=== PATIENT | female | born 1980 | race Caucasian/White ===

== ENCOUNTER 2021-04-20 11:36 | Emergency (ER) | payer OTHER, SELFPAY ==
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
--- NOTE | ~2021-04-20 | XR_ITS ---
EXAMINATION: XR ribs RT 2V w CXR 2V INDICATION: Right-sided rib pain TECHNIQUE: PA and lateral views of the chest and 3 views of the right ribs were obtained. COMPARISON: None. FINDINGS: The lungs are free of acute opacities. There is no pleural effusion or pneumothorax. The ca rdiomediastinal silhouette is normal. The visualized osseous structures are unremarkable. No displace d rib fracture is identified. Surgical clips are noted in the right neck. IMPRESSION: 1. No acute cardiopulmonary abnormality or evidence of displaced rib fracture. Reviewed, dictated and finalized at location A.
[2021-04-20 11:42] VITALS: BP 145/106; PULSE 71; RESP 20; TEMP 36.4; O2SAT 98
[2021-04-20] MEDS: ACETAMINOPHEN 500 MG TABLET 1000 MG PO (14:19)
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
[2021-04-20 15:56] VITALS: BP 160/90; PULSE 66; RESP 20; TEMP 36.4; O2SAT 100
== END 2021-04-20 15:58 | disposition home or self-care (01) ==
PROVIDERS: Emergency Provider Emergency Medicine
DX: S39.012A Strain of muscle, fascia and tendon of lower back, initial encounter (principal); S20.211A Contusion of right front wall of thorax, initial encounter; E03.9 Hypothyroidism, unspecified; M43.16 Spondylolisthesis, lumbar region; M46.1 Sacroiliitis, not elsewhere classified; V49.50XA Passenger injured in collision with unspecified motor vehicles in traffic accident, initial encounter
CPT/HCPCS: 71046; 71100; 72131; 99284; A9270

== ENCOUNTER 2021-05-13 17:35 | Emergency (ER) | payer OTHER, SELFPAY ==
--- NOTE | ~2021-05-13 | XR_ITS ---
XR hand RT min 3V DATE: 05/13/2021 17:51 INDICATION: Fall in posterior aspect of hand. Hand pain. TECHNIQUE: 3 views COMPARISON: None FINDINGS: No fracture or dislocation, periosteal reaction or bone destruction, erosive change or rafal drocalcinosis. IMPRESSION: Negative Reviewed, dictated and finalized at location A. IMPRESSION: Negative
[2021-05-13 17:40] VITALS: BP 148/99; PULSE 63; RESP 16; TEMP 36.6; O2SAT 99
--- NOTE | 2021-05-13 17:40 | ED.UPPEXIN ---
HPI - Extremity Injury (Upper) General Chief Complaint: Extremity Injury, Upper Stated Complaint: right hand injury Time Seen by Provider: 05/13/21 17:38 Source: patient and RN notes reviewed History of Present Illness HPI narrative: Patient is a 40-year-old female who presents the urgent care with complaints of right hand pain. Patient states it is mainly to her right thumb and right pinky finger. Patient states that she fell off a plastic stool approximately 2 weeks ago and she has had continual right pinky pain and pain to the right thumb with flexion. 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 Patient has not taken anything [id number] for pain. No other acute complaints. No acute distress noted. Patient read the plan of care. Some parts of this dictation were generated by voice recognition software and may contain typographical and/or grammatical inaccuracies. Related Data Home Medications Medication Instructions Recorded Confirmed escitalopram oxalate 20 mg PO DAILY 05/13/21 05/13/21 levothyroxine 200 mcg PO DAILY 05/13/21 05/13/21 Allergies Allergy/AdvReac Type Severity Reaction Status Date / Time Sulfa (Sulfonamide Allergy Mild Rash Verified 05/13/21 17:59 Antibiotics) latex Allergy Unknown Rash Verified 05/13/21 17:57 Penicillins Allergy Unknown Rash Verified 05/13/21 17:57 Review of Systems Review of Systems: CONSTITUTIONAL: Denies fever, chills, or sweats. EYES: Denies visual changes, redness, or discharge. ENT: Denies rhinorrhea, congestion, sore throat, or otalgia. CARDIOVASCULAR: Denies chest pain, palpitations, or edema. RESPIRATORY: Denies cough or dyspnea. GASTROINTESTINAL: Denies abdominal pain, nausea, vomiting, or diarrhea. GENITOURINARY: Denies dysuria or hematuria. SKIN: Denies rash or itching. MUSCULOSKELETAL: Reports of right thumb and right pinky finger injuries with pain and swelling NEUROLOGIC: Denies headache, numbness, or weakness. All other systems reviewed are negative, except as documented in HPI. [facility] Past Medical History Medical History (Updated 05/13/21 @ 18:03 by KIRSTIN Levi) History of hypothyroidism Surgical History Surgical History (Updated 04/20/21 @ 14:38 by Barbie Hdez PA-C) History of section History of cholecystectomy History of hysterectomy Social History Social History (Updated 04/20/21 @ 14:38 by Barbie Hdez PA-C) Substance use: never Comments At the time of my signature, I reviewed and agree with the nursing past medical, surgical, social, and family history. There is no relevant family history pertinent to the patient complaint. Exam Narrative: GENERAL: This is a well-nourished, well-developed patient, in no apparent distress. HEAD: normocephalic, atraumatic. EYES: PERRL. Sclera clear/white. Vision is grossly intact. EARS: External ears normal NOSE: External nose normal with no obvious nasal discharge, nares without redness, no rhinorrhea. THROAT: Mucous membranes moist CARDIOVASCULAR: Regular rate and rhythm without murmurs, gallops, or rubs. RESPIRATORY: Clear to auscultation. Breath sounds equal bilaterally. No wheezes, rales, or rhonchi. SKIN: warm, intact with no suspicious lesions or rash, good texture and turgor. NEURO: awake, alert, and oriented to person, place and time. There were no obvious focal neurologic abnormalities. EXTREMITIES: Mild ecchymosis noted to the MCP of the right thumb with exacerbated pain on flexion. Mild ecchymosis/edema noted to the radial aspect of the right pinky finger. No obvious deformity. Positive strong right radial pulse with capillary refill less than 2 seconds. Course Vital Signs Vital signs: Vital Signs Temperature 97.9 F 05/13/21 17:40 Pulse Rate 63 05/13/21 17:40 Respiratory Rate 16 05/13/21 17:40 Blood Pressure 148/99 H 05/13/21 17:40 Pulse Oximetry 99 05/13/21 17:40 Temperature 97.9 F
== END 2021-05-13 18:05 | disposition home or self-care (01) ==
PROVIDERS: Emergency Provider Nurse Practitioner Family; PCP Emergency Medicine
DX: S63.619A Unspecified sprain of unspecified finger, initial encounter (principal); X58.XXXA Exposure to other specified factors, initial encounter; E03.9 Hypothyroidism, unspecified
CPT/HCPCS: 73130; 99213; G0463

== ENCOUNTER 2023-06-09 18:05 | Emergency (ER) | payer OTHER, SELFPAY ==
--- NOTE | ~2023-06-09 | XR_ITS ---
EXAMINATION: XR foot RT min 3V DATE: 06/09/2023 18:20 INDICATION: Lateral right foot pain post injury after walking downstairs with audible pop 1 week prio r TECHNIQUE: Dorsoplantar, two oblique and lateral views of the right foot were obtained. COMPARISON: None. FINDINGS: Bone alignment is normal. No fracture. Joint spaces are normal. Small os supra naviculare. Small plan tar calcaneal spur. Soft tissues are unremarkable. IMPRESSION: 1. No acute osseous abnormality. Reviewed, dictated and finalized at location A.
[2023-06-09 18:13] VITALS: BP 144/96; PULSE 71; RESP 16; TEMP 36.6; O2SAT 98
[2023-06-09 18:17] VITALS: BP 144/96; PULSE 71; RESP 16; TEMP 36.6; O2SAT 98
--- NOTE | 2023-06-09 18:21 | ED.LOWEXIN ---
HPI - Extremity Injury (Lower) General Chief Complaint: Extremity Injury, Lower Stated Complaint: Right Foot Injury Time Seen by Provider: 06/09/23 18:22 Source: patient, RN notes reviewed and old records reviewed Mode of arrival: ambulatory Limitations: no limitations History of Present Illness HPI Narrative: 42 year old female presents to [facility] care with complaints of going down the steps one week ago and felt a pop. Patient reports pain to dorsal aspect of her right foot with pain along her lateral foot near 5th metatarsal region with concern for raised area on dorsal foot, Patient has taken Ibuprofen and Tylenol iced and elevated foot. Patient states that her foot feels like falling apart when she ambulates on it, Circulation sensation intact with no acute bruising or swelling noted. MD complaint: foot injury (right) Onset (ago): week(s) (week) Type of Injury: other (rolled foot felt pop) Severity scale (1-10): 6 Treatments prior to arrival: cold therapy, NSAIDS and other (Tylenol and elevated) Related Data Home Medications Medication Instructions Recorded Confirmed escitalopram oxalate 20 mg tablet 20 mg PO DAILY 05/13/21 06/09/23 levothyroxine 200 mcg tablet 200 mcg PO DAILY 05/13/21 06/09/23 hydroxychloroquine 200 mg tablet 200 mg PO DAILY 06/09/23 06/09/23 Allergies Allergy/AdvReac Type Severity Reaction Status Date / Time Sulfa (Sulfonamide Allergy Mild Rash Verified 06/09/23 18:14 Antibiotics) latex Allergy Unknown Rash Verified 06/09/23 18:14 Penicillins Allergy Unknown Rash Verified 06/09/23 18:14 Review of Systems Review of Systems: CONSTITUTIONAL: Denies fever, chills, or sweats. CARDIOVASCULAR: Denies chest pain, palpitations, or edema. RESPIRATORY: Denies cough or dyspnea. SKIN: Denies rash or itching. Denies laceration or abrasions MUSCULOSKELETAL: Reports right foot pain along lateral foot by 5th metatarsal region and some discomfort when ambulates NEUROLOGIC: Denies numbness, or weakness. All systems reviewed & are unremarkable except as noted in HPI and below PMFSH Past Medical History Medical History History of hypothyroidism Surgical History Surgical History (Updated 06/12/23 @ 19:34 by Erna Giraldo NP) H/O thyroidectomy History of section History of cholecystectomy History of hysterectomy Social History Social History (Updated 06/12/23 @ 19:37 by Erna Giraldo NP) Smoking status: Never smoker Substance use: never Comments At time of signature, agree with nursing past medical, surgical, social and family history. There is no relevant family history pertinent to the presenting complaint Exam Narrative: GENERAL: Well-appearing, well-nourished, and in no acute distress. HEAD: Normocephalic, atraumatic. EYES: PERRLA and EOMI. ENT: Nares clear, no rhinorrhea or epistaxis. Mucous membranes moist.TM's normal, throat pink without swelling NECK: Supple.no lymphadenopathy CHEST: Clear to auscultation. No respiratory distress.SAO2 98% on room air HEART: Regular rate and rhythm. No murmur heard. Normal peripheral pulses. ABDOMEN: Soft, nontender, nondistended, normal active bowel sounds. EXTREMITIES: Normal range of motion. No edema.pain to right foot dorsal lateral area and small raised tissue to area over 5th metatarsal site.circulation and sensation intact. SKIN: Warm, dry, no rash. NEURO: No focal deficits. Alert and oriented x3. Course Course Emergency Course: Patient is aware of diagnosis, understands and agrees to treatment plan. Anticipatory guidance given. Patient agrees to follow-up as directed and is aware of reasons to seek care at the emergency department. Portions of this record may have been created with voice recognition software Level of Care: Express Care Visit Vital Signs Vital signs: Vital Signs Temperature 36.6 C 06/09/23 18:13 Pulse Rate 71 06/09/23 18:13 R
== END 2023-06-09 19:07 | disposition home or self-care (01) ==
PROVIDERS: Emergency Provider Registered Nurse; PCP Emergency Medicine
DX: M79.671 Pain in right foot (principal); E89.0 Postprocedural hypothyroidism
CPT/HCPCS: 73630; 99213; G0463

== ENCOUNTER 2023-12-18 17:26 | Emergency (ER) | payer OTHER, SELFPAY ==
--- NOTE | ~2023-12-18 | XR_ITS ---
EXAMINATION: XR shoulder LT min 2V DATE: 12/18/2023 17:49 INDICATION: Left shoulder injury and pain. TECHNIQUE: 4 views of left shoulder were obtained. COMPARISON: None. FINDINGS: Bone alignment is normal. No fracture. Joint spaces are normal. IMPRESSION: 1. Normal left shoulder. Reviewed, dictated and finalized at location E. IMPRESSION: 1. Normal left shoulder.
[2023-12-18 17:32] VITALS: BP 136/92; PULSE 65; RESP 18; TEMP 36.3; O2SAT 100
--- NOTE | 2023-12-18 17:45 | ED.UPPEXIN ---
HPI - Extremity Injury (Upper) General Chief Complaint: Extremity Injury, Upper Stated Complaint: Left Shoulder Injury History of Present Illness HPI narrative: Injured left shoulder 2 months ago while going up stairs carrying laundry. Related Data Home Medications Medication Instructions Recorded Confirmed escitalopram oxalate 20 mg tablet 20 mg PO DAILY 05/13/21 06/09/23 levothyroxine 200 mcg tablet 200 mcg PO DAILY 05/13/21 06/09/23 hydroxychloroquine 200 mg tablet 200 mg PO DAILY 06/09/23 06/09/23 ergocalciferol (vitamin D2) 1,250 12/18/23 mcg (50,000 unit) capsule escitalopram oxalate 10 mg tablet mg 12/18/23 estradiol 1 mg tablet mg 12/18/23 ibuprofen 800 mg tablet mg 12/18/23 levothyroxine 200 mcg tablet mcg 12/18/23 Allergies Allergy/AdvReac Type Severity Reaction Status Date / Time Sulfa (Sulfonamide Allergy Mild Rash Verified 06/09/23 18:14 Antibiotics) latex Allergy Unknown Rash Verified 06/09/23 18:14 Penicillins Allergy Unknown Rash Verified 06/09/23 18:14 Review of Systems Review of Systems: CONSTITUTIONAL: Denies fever, chills, or sweats. EYES: Denies visual changes, redness, or discharge. ENT: Denies rhinorrhea, congestion, sore throat, or otalgia. CARDIOVASCULAR: Denies chest pain, palpitations, or edema. RESPIRATORY: Denies cough or dyspnea. GASTROINTESTINAL: Denies abdominal pain, nausea, vomiting, or diarrhea. GENITOURINARY: Denies dysuria or hematuria. SKIN: Denies rash or itching. MUSCULOSKELETAL: Denies back pain, joint pain, or myalgia. NEUROLOGIC: Denies headache, numbness, or weakness. PSYCHIATRIC: Denies anxiety or depression. [facility] Past Medical History Medical History (Updated 12/18/23 @ 17:54 by KIRSTIN Jimenez) History of hypothyroidism Surgical History Surgical History (Updated 06/12/23 @ 19:34 by Erna Giraldo NP) H/O thyroidectomy History of section History of cholecystectomy History of hysterectomy Social History Social History (Updated 06/12/23 @ 19:37 by Erna Giraldo NP) Smoking status: Never smoker Substance use: never Comments At time of signature, agree with nursing past medical, surgical, social and family history. There is no relevant family history pertinent to the presenting complaint Exam Narrative: GENERAL: Well-appearing, well-nourished, and in no acute distress. HEAD: Normocephalic, atraumatic. EYES: PERRLA and EOMI. ENT: Nares clear, no rhinorrhea or epistaxis. Mucous membranes moist. NECK: Supple. CHEST: Clear to auscultation. No respiratory distress. HEART: Regular rate and rhythm. No murmur heard. Normal peripheral pulses. ABDOMEN: Soft, nontender, nondistended, normal active bowel sounds. EXTREMITIES: Normal range of motion. No edema.NO SWELLING, BRUISING, SKIN CHANGES. SKIN INTACT. NORMAL RADIAL PULSE. NO DEFORMITY OF SHOULDER. NO CLAVICLE TENDERNESS. NORMAL UE SENSATION AND STRENGTH. ROM EVALUATED - CAN RAISE UE ABOVE SHOULDER, CAN ABDUCT, ADDUCT, EXTERNALLY ROTATE AND CAN INTERNALLY ROTATE AND RAISE THUMB UP THE SPINE. NO AC JOINT TENDERNESS, CAN CROSS ARM HORIZONTALLY AND PLACE HAND ON OPPOSITE SHOULDER, NO WINGING OF THE SCAPULA. SUPRASPINATUS APPEARS NORMAL WITH ARMS STRAIGHT OUT AT 30 DEGREES, THUMB DOWN , CAN ABDUCT AGAINST RESISTANCE. SKIN: Warm, dry, no rash. NEURO: No focal deficits. Alert and oriented x3. Andry Coma Scale Eye Opening: Spontaneous 4 Andry Coma Scale Motor: Obeys Commands 6 Durham Coma Scale Verbal: Oriented 5 Durham Coma Scale Total 15 Course Course Level of Care: Express Care Visit Vital Signs Vital signs: Vital Signs Temperature 36.3 C L 12/18/23 17:32 Pulse Rate 65 12/18/23 17:32 Respiratory Rate 18 12/18/23 17:32 Blood Pressure 136/92 H 12/18/23 17:32 Pulse Oximetry 100 12/18/23 17:32 Oxygen Delivery Room Air 12/18/23 17:32 Temperature 36.3 C L 12/18/23 17:32 Pulse Rate 65 12/18/23 17:32 Respiratory Rate 18 0
== END 2023-12-18 18:17 | disposition home or self-care (01) ==
PROVIDERS: Emergency Provider Nurse Practitioner Family; PCP Emergency Medicine
DX: S46.912A Strain of unspecified muscle, fascia and tendon at shoulder and upper arm level, left arm, initial encounter (principal); X58.XXXA Exposure to other specified factors, initial encounter; E03.9 Hypothyroidism, unspecified
CPT/HCPCS: 73030; 99213; G0463

== ENCOUNTER 2025-04-11 21:24 | Observation (INO) | payer OTHER, SELFPAY ==
--- OUTSIDE RECORDS SUMMARY | 1999-05-10 19:00 | XMS_ITS | Continuity of Care Document ---
Author Organization [facility] Address [address] [place] [address] Phone Care Team Providers Care Facility Maintenance Mechanic Name Role Phone Belen Dudley MD Unavailable Unavailable Advance Directives Directive Yes / No Effective Date File Name No Information Encounters Encounter Description Practice Location Reason(s) For Visit Diagnoses Date Provider Providers Copied on Encounter [facility], [address], [place], [place], [address], [place] tel:[phone] [facility] No Information Octavia Glover. [address] [facility], [address], [place], [place], [address], [place]. tel:[phone] Family History Family Member Type Diagnosis Age At Onset No Information Payers Payer name Insurance type Covered alliance party ID Authoriza tion(s) No Information Social History Type Description Quantity Date Captured Comments Sex Female Smoking Status No Information Vital Signs Date / Time: Height Weight BMI Pulse Rate Blood Pressure Temperature Respiratory Rate Body Surface Area Head Circumference Head Circ. Percentile Wt./Brandt. Percentile BMI percentile Pulse Ox Inhaled Ox 11:53 AM 155.30 lbs Chief Complaint And Reason For Visit No Information Reason For Referral Reason For Referral No Information History Of Present Illness Encounter Date Complaint History Of Prese nt Illness No Information Functional Status Date Functional Assessmen t No Information Instructions Date Instruction Additional Infor mation No Information Assessments Type Assessment Date No Information Patient Care Teams Name Effective Dates (start - stop) Status Members No Information
--- OUTSIDE RECORDS SUMMARY | 1999-05-10 19:00 | XMS_ITS | Continuity of Care Document ---
Author Organization [facility] Address [address] [place] [address] Phone Care Team Providers Care Campus Security Officer Name Role Phone Belen Dudley MD Unavailable Unavailable Advance Directives Directive Yes / No Effective Date File Name No Information Encounters Encounter Description Practice Location Reason(s) For Visit Diagnoses Date Provider Providers Copied on Encounter [facility], [address], [place], [place], [address], [place] tel:[phone] [facility] No Information Octavia Glover. [address] [facility], [address], [place], [place], [address], [place]. tel:[phone] Family History Family Member Type Diagnosis Age At Onset No Information Payers Payer name Insurance type Covered libertarian ID Authoriza tion(s) No Information Social History [...]
--- OUTSIDE RECORDS SUMMARY | 1999-05-10 19:00 | XMS_ITS | Continuity of Care Document ---
Author Organization [facility] Address [address] [place] [address] Phone Care Team Providers Care Tram Driver Name Role Phone Belen Dudley MD Unavailable Unavailable Advance Directives Directive Yes / No Effective Date File Name No Information Encounters Encounter Description Practice Location Reason(s) For Visit Diagnoses Date Provider Providers Copied on Encounter [facility], [address], [place], [place], [address], [place] tel:[phone] Located [facility] No Information Octavia Glover. [address] [facility], [address], [place], [place], [address], [place]. tel:[phone] Family History Family Member Type Diagnosis Age At Onset No Information Payers Payer name Insurance type Covered democrat ID Authoriza tion(s) No Information Social History [...]
--- OUTSIDE RECORDS SUMMARY | 2021-10-12 07:55 | XMS_ITS | Continuity of Care Document ---
Author Organization [facility] Address [address] [place] [address] Phone Care Team Providers Care Refinery Operator Reforming Unit Name Role Phone Connor Alberts MD Unavailable Unavailable Allergies, Adverse Reactions, Alerts Substance Reaction Status Criticality Penicillins Active No Information latex Active No Information Medications Medication Instructions Dosage Effective Dates (start - stop) Status Comments Lexapro 20 mg tablet take 1 tablet by or al route every day 20 MG - Active EpiPen 2-Rigo 0.3 mg/0.3 mL injection, auto-injector inject 0.3 milliliter by intramuscular route once as needed for anaphylaxis 0.3 MG - Active Synthroid 200 mcg tablet take 1 tablet by oral route every day 200 MCG - Active Procedures Procedure Date OFFICE/OUTPATIENT VISIT, EST OFFICE/OUTPATIENT VISIT, EST PREV VISIT, NEW, AGE 18-39 Advance Directives Directive Yes / No Effective Date File Name No Information Encounters Encounter Description Practice Location Reason(s) For Visit Diagnoses Date Provider Providers Copied on Encounter OFFICE/OUTPA TIENT VISIT, EST [facility], [address] [place], [place], [address], [place] tel:[phone] [facility] lupus (chief complaint) thyroid1 (chief complaint) HTN (chief complaint) wasp allergy1 (chief complaint) FatigueEssential (primary) hypertensionSystemi c lupus erythematosus, unspecifiedHypothyr oidismGeneralized Anxiety DisorderBee allergy status 2 Aristeo Ryan. [address], [place], [place], [address] , . tel:[phone] OFFICE/OUTPA TIENT VISIT, EST [facility], [address], [place], [place], [address], tel:[phone] [facility] HLP (chief complaint) glucose1 (chief complaint) hypothyroi dism1 (chief complaint) lupus1 (chief complaint) HTN (chief complaint) fatigue1 (chief complaint) HyperlipidemiaHypot hyroidismHyperglyce miaSystemic lupus erythematosus, unspecifiedFatigueE ssential (primary) hypertension May- 1 Aristeo Ryan. [address], [place], [place], [address] , [place]. tel:[phone] PREV VISIT, NEW, AGE 18-39 [facility], [address], [place], [place], [address], [place] tel:[phone] [facility] Physical (chief complaint) Encounter for general adult medical examination without abnormal findings Sep-0 1 Aristeo Ryan. [address], [address], [place], [place], [address] , [place]. tel:[phone] Family History Family Member Type Diagnosis Age At Onset Brother Problem Alive and well Father Problem palpitation Mother Problem Diabetes mellitus Mother Problem Hypertension Brother Problem Depression Payers Payer name Insurance type Covered republican ID Authoriza tion(s) No Information Social History Type Description Quantity Date Captured Comments Alcohol Use Details beer & wine Caffeine Use Details Unknown Tobacco Use Status Current non-smoker Smoking Status Never smoker Non-Smoking Tobacco Use Details : No Details Available : No Details Available Sex Female Vital Signs Date / Time: Height Weight BMI Pulse Rate Blood Pressure Temperature Respiratory Rate Body Surface Area Head Circumference BMI percentile Pulse Ox Inhaled Ox 1:01 PM 63.00 in 252.20 lbs 44.6 7 kg/m eter (2) 78 /min 132/88 mm[Hg] 98.1 F 18 /min Chief Complaint And Reason For Visit From encounter dated '10/12/2021 12:55'. lupus (chief complaint). Description: Risk factors include female gender. Additional information: Pt is seeing rheumatology and she was told that she does not have any active lupus and she is currently off all meds. PT denies any rash or joint pain thyroid1 (chief complaint). Description: Pt has hypothyroidism. Pt is seeing endo and she is takingsynthroid from endo. Pt denies any dysphagia or neck pain HTN (chief complaint). Description: Pt states that her bp is less than 140/90 at home and she stopped taking irbesartan on her own, Her bp is ok today Pt denies any chest pain or headache wasp allergy1 (chief complaint). 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 Ptdenies any anaphylactic reaction but she did have severe location reaction with some trouble swallowing in the past with wasp sting Plan Of Treatment Date Type Action Status Referral Ordered: Solderer Assembler (related to Hyperlipidemia) ordered Referral Ordered: SLEEP STUDY, ATTENDED ordered Referral Ordered: Referrals: Solderer Assembler. Evaluate and treat ordered History Of Present Illness Encounter Date Complaint History Of Prese nt Illness wasp allergy1 Pt has wasp dave rgy and she needs epipen refilled. Pt denies any anaphylactic reaction but she did have severe location reaction with some trouble swallowing in the past with wasp sting HTN Pt states that h er bp is less than 140/90 at home and she stopped taking irbesartan on her own, Her bp is ok today Pt denies any chest pain or headache thyroid1 Pt has hypothyro idism. Pt is seeing endo and she is taking synthroid from endo. Pt denies any dysphagia or neck pain lupus Risk factors inc lude female gender. Additional information: Pt is seeing rheumatology and she was told that she does not have any active lupus and she is currently off all meds. PT denies any rash or joint pain fatigue1 Pt has chronic f atigue .Pt denies any sob. Pt feels tired all the time, especially in the morning. Pt does snore. HTN Pt has HTN Pt st ates that her BP has been elevated recently Pt denies any chest pain or headache. lupus1 Pt has lupus. Pt recently started Plaquenil again by rheumatology. Pt has kieran with rheumatology in two weeks Pt states that she has rather severe diarrhea with Plaquenil. Pt started to have diarrhea again but no blood. Pt denies any abd pain or GERD Pt states that joint pain improving with plaquenil but she has persistent non-bloody diarrhea. pt denies any abd pain hypothyroidism1 Pt has hypothyro idism s/p total thyroidectomy due to goiter. Pt denies any dysphagia or neck pain. TSH level ok glucose1 Pt has high gluc ose Pt denies any polycythemia, polydipsia HLP Pt has high TG P t is on keto diet for long time so it is surprising that her TG is elevated. Pt states that she only consumes 20 carb per day. Pt does not drink alcohol, eat any starchy food or fried food. Pt denies any family history of high TG Physical Pt needs annual physical. Pt has hypothyroidism. Pt had total thyroidectomy due to goiter. Pt sees endo Pt takes synthroid 200 mcg daily. Pt has lupus and she was on Plaquenil for a while and she benlysta but she has not been above medication for at least 6 months due to lack of follow up with her rheumatology. 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 Pt has right middle and 5th finger pip joint pain and she was told by rheumatology that she has crippling osteoarthritis and she received steroid injection to the joint which caused some discoloration around the joint. Pt states that joint pain doing ok. Pt states that her rheumatology is on leave and the CBX OPERATOR is busy and she has appointment with rheumatology in 4 weeks after 6 months waiting. Pt supposes to see endo every 3 months but she has not seen them due to COVID. Pt also has appointment with endo in 6 weeks. Pt denies any dysphagia or neck pain. Pt c/o left ear pain for 3 weeks ago> pt got water in both ear from rain and she went to urgent care ad was told she has double ear infection. Pt was on bactrim and right ear pain resolved but left ear pain persisted. Pt denies any drainage. Pt denies any hearing loss. Instructions Date Instruction Additional Infor mation No Information Assessments Type Assessment Date assessment Fatigue assessment Essential (primary) hypertension assessment Systemic lupus erythematosus, un specified assessment Hypothyroidism assessment Generalized Anxiety Disorder Oct assessment Bee allergy status Mental Status Date Cognitive Assessment Orientation - Posen ed to time, place, person, situation.
--- OUTSIDE RECORDS SUMMARY | 2021-10-12 07:55 | XMS_ITS | Continuity of Care Document ---
Author Organization [facility] Address [address] [place] [address] [place] [address] Phone Care Team Providers Care Acquisitions Librarian Name Role Phone Connor Alberts MD Unavailable Unavailable Allergies, Adverse Reactions, Alerts Substance Reaction Status Criticality Penicillins Active No Information latex Active No Information Medications Medication Instructions Dosage Effective Dates (start - stop) Status Comments EpiPen 2-Rigo 0.3 mg/0.3 mL injection, auto-injector inject 0.3 milliliter by intramuscular route once as needed for anaphylaxis 0.3 MG - Active Lexapro 20 mg tablet take 1 tablet by or al route every day 20 MG - Active Synthroid 200 mcg tablet [...] Copied on Encounter OFFICE/OUTPA TIENT VISIT, EST [facility], [address] [place], [place], [address], [place] tel:[phone] [facility] lupus (chief complaint) thyroid1 (chief complaint) HTN (chief complaint) wasp allergy1 (chief complaint) FatigueEssential (primary) hypertensionSystemi c lupus erythematosus, unspecifiedHypothyr oidismGeneralized Anxiety DisorderBee allergy status 2 Aristeo Ryan. [address], [place], [place], [address] , . tel:[phone] OFFICE/OUTPA TIENT VISIT, EST [facility], [address], [place], [place], [address], tel:[phone] [facility] HLP (chief complaint) glucose1 (chief complaint) hypothyroi dism1 (chief complaint) lupus1 (chief complaint) HTN (chief complaint) fatigue1 (chief complaint) HyperlipidemiaHypot hyroidismHyperglyce miaSystemic lupus erythematosus, unspecifiedFatigueE ssential (primary) hypertension May- 1 Aristeo Ryan. [address], [place], [place], [address] , [place]. tel:[phone] PREV VISIT, NEW, AGE 18-39 [facility], [address], [place], [place], [address], [place] tel:[phone] [facility] Physical (chief complaint) Encounter for general adult medical examination without abnormal findings Sep-0 1 Aristeo Ryan. [address], [place], [place], [address] , [place]. tel:[phone] Family History Family Member Type Diagnosis Age At Onset Brother Problem Alive and well Father Problem palpitation Mother Problem Diabetes mellitus Mother Problem Hypertension Brother Problem Depression Payers Payer name Insurance type Covered democrat [...] Treatment Date Type Action Status Referral Ordered: Stiff Leg Operator (related to Hyperlipidemia) ordered Referral Ordered: SLEEP STUDY, ATTENDED ordered Referral Ordered: Referrals: Stiff Leg Operator. Evaluate and treat ordered History Of Present Illness Encounter Date Complaint History Of Prese nt Illness lupus Risk factors inc lude female gender. Additional information: Pt is seeing rheumatology and she was told that she does not have any active lupus and she is currently off all meds. PT denies any rash or joint pain thyroid1 Pt has hypothyro idism. Pt is seeing endo and she is taking synthroid from endo. Pt denies any dysphagia or neck pain HTN Pt states that h er bp is less than 140/90 at home and she stopped taking irbesartan on her own, Her bp is ok today Pt denies any chest pain or headache wasp allergy1 Pt has wasp dave rgy and she needs epipen refilled. Pt denies any anaphylactic reaction but she did have severe location reaction with some trouble swallowing in the past with wasp sting HLP Pt has high TG P t is on keto diet for long time so it is surprising that her TG is elevated. Pt states that she only consumes 20 carb per day. Pt does not drink alcohol, eat any starchy food or fried food. Pt denies any family history of high TG glucose1 Pt has high gluc ose Pt denies any polycythemia, polydipsia hypothyroidism1 Pt has hypothyro idism s/p total thyroidectomy due to goiter. Pt denies any dysphagia or neck pain. TSH level ok lupus1 Pt has lupus. Pt recently started [...] non-bloody diarrhea. pt denies any abd pain HTN Pt has HTN Pt st ates that her BP has been elevated recently Pt denies any chest pain or headache. fatigue1 Pt has chronic f atigue .Pt denies any sob. Pt feels tired all the time, especially in the morning. Pt does snore. Physical Pt needs annual physical. Pt has [...] her rheumatology is on leave and the TAILER OUT is busy and she has appointment with [...] Mental Status Date Cognitive Assessment Orientation - [place] ed to time, place, person, situation.
--- OUTSIDE RECORDS SUMMARY | 2021-10-12 07:55 | XMS_ITS | Continuity of Care Document ---
Author Organization [facility] Address [address] [address] [place] [address] Phone Care Team Providers Care Psychiatric Nursing Assistant Name Role Phone Connor Alberts MD Unavailable [...] Copied on Encounter OFFICE/OUTPA TIENT VISIT, EST [facility], [address] [place], [place], [address], [place] tel:[phone] [facility] lupus (chief complaint) thyroid1 (chief complaint) HTN (chief complaint) wasp allergy1 (chief complaint) FatigueEssential (primary) hypertensionSystemi c lupus erythematosus, unspecifiedHypothyr oidismGeneralized Anxiety DisorderBee allergy status 2 Aristeo Ryan. [address], [place], [place], [address] , . tel:[phone] OFFICE/OUTPA TIENT VISIT, EST [facility], [address], [place], [place], [address], tel:[phone] [facility] HLP (chief complaint) glucose1 (chief complaint) hypothyroi dism1 (chief complaint) lupus1 (chief complaint) HTN (chief complaint) fatigue1 (chief complaint) HyperlipidemiaHypot hyroidismHyperglyce miaSystemic lupus erythematosus, unspecifiedFatigueE ssential (primary) hypertension May- 1 Aristeo Ryan. [address], [place], [place], [address] , [place]. tel:[phone] PREV VISIT, NEW, AGE 18-39 [facility], [address], [place], [place], [address], [place] tel:[phone] [facility] Physical (chief complaint) Encounter for general adult medical examination without abnormal findings Sep-0 1 Aristeo Ryan. [address], [place], [place], [address] , [place]. tel:[phone] Family History Family Member Type Diagnosis Age [...] Treatment Date Type Action Status Referral Ordered: Outdoor Power Equipment Mechanic (related to Hyperlipidemia) ordered Referral Ordered: SLEEP STUDY, ATTENDED ordered Referral Ordered: Referrals: Outdoor Power Equipment Mechanic. Evaluate and treat ordered History Of Present [...] her rheumatology is on leave and the PROCUREMENT ENGINEER is busy and she has appointment with [...] Mental Status Date Cognitive Assessment Orientation - [place] ed to time, place, person, situation.
--- OUTSIDE RECORDS SUMMARY | 2022-07-01 09:00 | XMS_ITS | Continuity of Care Document ---
Author Organization [facility] Address [address] [place] [address] Phone Care Team Providers Care Manager Shell Name Role Phone Jayy Sam MD Unavailable Unavailable Allergies, Adverse Reactions, Alerts Substance Reaction Status Criticality latex Active No Information Medications Medication Instructions Dosage Effective Dates (start - stop) Status Comments fluorometholone 0.1 % eye drops,suspension Into left eye instill 1 drop by ophthalmic route 4 times for four days, then two times a day for four days then stop. - Active levothyroxine 200 mcg capsule take 1 capsule by oral route every day 200 MCG - Active Plaquenil 200 mg tablet take 1 tablet by oral route 2 times every day 200 MG - Active Procedures Procedure Date Visual Field Examination(s) SCODI, Retina Office/outpatient Visit, Est Office/outpatient Visit, New Advance Directives Directive Yes / No Effective Date File Name No Information Encounters Encounter Description Practice Location Reason(s) For Visit Diagnoses Date Provider Providers Copied on Encounter Office/outpa tient Visit, Est [facility], [address], [place], [place], [address], [place] tel:[phone] SEC Tianna Powers 1 wk F/up (chief complaint) Episcleritis, leftHigh risk medication useLupus 2 Flaco Hope. [address] [facility], [place], [place], [address], [place]. tel:[phone] Specialist: Vidal Silver MD, [address], [place], [address]. tel:[phone] Provider: Lucia Cevallos OD, [facility] [address] [facility], [place], [address]. tel:[phone] Office/outpa tient Visit, [facility], [address], [place], [place], [address], tel:[phone] SEC [place] N Porfirio Redness (chief complaint) Episcleritis, leftLupusHigh risk medication use 2 Flaco Hope. [address] [facility] [facility] [address], [place], [place], [address], . tel:[phone] Referring Provider: Jayy Lou, [address] [facility], [place], [address]. tel:[phone] Family History Family Member Type Diagnosis Age At Onset Problem Family history of Diabetes m ellitus Problem Family history of Retinal de tachment Problem Family history of Glaucoma Payers Payer name Insurance type Covered libertarian ID Miah ledezma(s) [facility] CI [id number] Social History Type Description Quantity Date Captured Comments Alcohol Use Details Caffeine Use Details Tobacco Use Status Current non-smoker Smoking Status Never smoker Non-Smoking Tobacco Use Details : No Details Available : No Details Available Sex Female Chief Complaint And Reason For Visit From encounter dated '07/01/2022 14:00'. 1 wk F/up (chief complaint). Description: The 41 year old patient presents for evaluation of 1 wk F/up in the right eye and left eye. Pt states her OS is sore feeling, but overall most of the symptoms from her initial visit are better, less discharge and better consistency (not chunky/yellow), OS redness. Vision OU is stable. Pt is taking FML BID OS, no refills needed. Pt is on Plaquenil for lessthan a year, managed by Dr. Curtis. Reason For Referral Reason For Referral No Information Plan Of Treatment Date Type Action Status Patient Education Scleritis: Care Instruc tions completed History Of Present Illness Encounter Date Complaint History Of Prese nt Illness 1 wk F/up The 41 year old patient presents for evaluation of 1 wk F/up in the right eye and left eye. Pt states her OS is sore feeling, but overall most of the symptoms from her initial visit are better, less discharge and better consistency (not chunky/yellow), OS redness. Vision OU is stable. Pt is taking FML BID OS, no refills needed. Pt is on Plaquenil for less than a year, managed by Dr. Curtis. Redness The 41 year old patient presents for evaluation of Redness in the left eye. Pt was rubbing OS yesterday and she heard a pop. Pt went to look at it the eye was red in the nasal corner, and then it turn a yellowish color. Pt's bought her a face mask and she used it as a cool compress. Pt states she had a OSHEA Tuesday and into AM. Pt states the eye is painful to move and to the touch. Pt states when she woke this morning the lashes were matted shut and she had a lot of clear discharge. Functional Status Date Functional Assessmen t No Information Instructions Date Instruction Additional Infor shaziaion Impression/Plan Impression/Plan Assessments Type Assessment Date assessment Episcleritis, left assessment High risk medication use 2021 assessment Lupus Patient Care Teams Name Effective Dates (start - stop) Status Members No Information
--- OUTSIDE RECORDS SUMMARY | 2022-07-01 09:00 | XMS_ITS | Continuity of Care Document ---
Author Organization [facility] Address [address] [place] [address] Phone Care Team Providers Care Director Software Name Role Phone Jayy Sam MD Unavailable [...] Copied on Encounter Office/outpa tient Visit, Est [facility], [address], [place], [place], [address], [place] tel:[phone] SEC Tianna Powers 1 wk F/up (chief complaint) Episcleritis, leftHigh risk medication useLupus 2 Flaco Hope. [address] [facility], [place], [place], [address], [place]. tel:[phone] Specialist: Vidal Silver MD, [address], [place], [address]. tel:[phone] Provider: Lucia Cevallos OD, [facility] [address] [facility] [address], [place], [address]. tel:[phone] Office/outpa tient Visit, [facility], [address], [place], [place], [address], tel:[phone] SEC [place] N Porfirio Redness (chief complaint) Episcleritis, leftLupusHigh risk medication use 2 Flaco Hope. [address] [facility] [facility] [address], [place], [place], [address], . tel:[phone] Referring Provider: Jayy Lou, [address] [facility] [address], [place], [address]. tel:[phone] Family History Family Member Type Diagnosis Age At Onset Problem Family history of Diabetes m ellitus Problem Family history of Retinal de tachment Problem Family history of Glaucoma Payers Payer name Insurance type Covered republican ID Miah ledezma(s) [facility] CI [id number] Social History Type Description Quantity Date Captured [...]
--- OUTSIDE RECORDS SUMMARY | 2022-07-01 09:00 | XMS_ITS | Continuity of Care Document ---
Author Organization [facility] Address [address] [place] [address] Phone Care Team Providers Care Boilermaker Apprentice Name Role Phone Jayy Sam MD Unavailable [...] Copied on Encounter Office/outpa tient Visit, Est [facility], [address], [place], [place], [address], [place] tel:[phone] SEC Tianna Powers 1 wk F/up (chief complaint) Episcleritis, leftHigh risk medication useLupus 2 Flaco Hope. [address] [facility], [place], [place], [address], [place]. tel:[phone] Specialist: Vidal Silver MD, [address], [place], [address]. tel:[phone] Provider: Lucia Cevallos OD, [facility] [address] [facility], [place], [address]. tel:[phone] Office/outpa tient Visit, [facility], [address], [place], [place], [address], tel:[phone] SEC [place] N Porfirio Redness (chief complaint) Episcleritis, leftLupusHigh risk medication use 2 Flaco Hope. [address] [facility], [place], [place], [address], . tel:[phone] Referring Provider: Jayy Lou, [address] [facility] [address], [place], [address]. tel:[phone] Family History Family Member Type Diagnosis Age At Onset Problem Family history of Diabetes m ellitus Problem Family history of Retinal de tachment Problem Family history of Glaucoma Payers Payer name Insurance type Covered democrat ID Miah ledezma(s) [facility] CI [id number] Social History Type Description Quantity Date Captured [...]
[2025-04-11] VITALS (18 sets, daily range): BP systolic 140–183; BP diastolic 74–115; PULSE 62–80; RESP 15–21; TEMP 36.5; O2SAT 97–100
--- NOTE | ~2025-04-11 | MR_ITS ---
EXAMINATION: MR brain/brain stem wo/w con DATE: 04/12/2025 12:08 INDICATION: Headache and stiff neck TECHNIQUE: Magnetic resonance imaging (MRI) of the brain and brainstem was performed without intravenous contrast. Sequences included sagittal and axial T1-weighted SE, axial diffusion-weighted FS SE, axial 3D SWAN, axial T2-weighted FLAIR, and axial T2-weighted FSE. Postcontrast axial and coronal T1-weighted SE was obtained. Apparent diffusion coefficient (ADC) maps were created. COMPARISON: Head CT dated 04/11/2025 FINDINGS: There are no areas of restricted diffusion to suggest acute infarction. No intracranial hemorrhage or abnormal intracranial mass lesion. There are a few scattered small foci of nonspecific increased T2-weighted signal intensity in the cerebral white matter which is within normal limits for age. There are no intraparenchymal signal abnormalities seen on the other pulse sequences. The ventricles are symmetric and normal in size. There are no abnormal extra-axial fluid collections. Flow voids are seen in the cerebral arteries on the T2- weighted sequences consistent with their expected patency. Visualized orbits and soft tissues are unremarkable. IMPRESSION: 1. Normal for age brain MR. No acute intracranial process. Reviewed, dictated and finalized at location A.
--- NOTE | ~2025-04-11 | CT_ITS ---
History: Headache PROCEDURE: CT head without contrast. COMPARISON: None TECHNIQUE: Axial imaging of the head performed from the skull base to the vertex without IV contrast. Sagittal and coronal reformations obtained. DLP: 681 mGy-cm FINDINGS: The ventricles are normal in size, shape and position. There is no mass, mass effect or midline shift. There is no abnormal extra-axial fluid collection or intracranial hemorrhage. Visualized paranasal sinuses are clear. The mastoid air cells are well aerated. No acute displaced fractures within the overlying cranium. Impression: No acute intracranial hemorrhage or suspicious mass effect. Reviewed, dictated and finalized at location A. Impression: No acute intracranial hemorrhage or suspicious mass effect.
--- NOTE | ~2025-04-11 | XR_ITS ---
CHEST RADIOGRAPH CLINICAL HISTORY: infection . COMPARISON: None available TECHNIQUE: Single portable view of the chest. FINDINGS The cardiomediastinal silhouette is unremarkable. The lungs are clear. IMPRESSION: No focal infiltrate or effusion. Reviewed, dictated and finalized at location A.
--- OUTSIDE RECORDS SUMMARY | 2025-04-11 21:26 | XMS_ITS | Clinical Summary ---
Author Organization [facility] [address] [place] [address] Address [address] [facility] 5th [place] [address] Care Team Providers Care Laundry Pricing Clerk Name Role Phone Tennille Beauchamp NP Primary Care Provider [phone] Allergies Active Allergy Reactions Criticality Noted Date Comments Latex Medium Penicillins Hives,Rash Medium Reaction: Hives, Skin Rash, Shellfish Itching Low 01/08/2025 Venom-Honey Bee Anaphylaxis High 12/13/2024 Venom-Wasp Anaphylaxis High 12/13/2024 Medications ammonium lactate (LAC-HYDRIN) 12 % cream apply affected areas once a day 30 4 1 Active Additional Information Patient not taking.Reported on 01/08/2025 Wegovy 1.7 mg/0.75 mL auto-injector 0.75 mL (1.7 mg total) 4 Active hydroxychloroqu ine (PLAQUENIL) 200 mg tablet Take 1 tablet (200 mg total) by mouth daily 4 Active estradioL (ESTRACE) 1 mg tablet Take 1 tablet (1 mg total) by mouth daily 4 Active escitalopram (LEXAPRO) 10 mg tablet Take 1 tablet (10 mg total) by mouth daily 4 Active levothyroxine (SYNTHROID) 200 mcg tablet 1 tablet (200 mcg total) 4 Active cholecalciferol (REPLESTA) 50,000 unit wafer Take 1,250 mcg by mouth every 7 days Active metaxalone (SKELAXIN) 800 mg tabletIndicatio ns:Muscle Spasm Take 1 tablet (800 mg total) by mouth 3 (three) times a day as needed for muscle spasms 60 tablet 4 Active Additional Information Patient not taking.Reported on 01/08/2025 ibuprofen (ADVIL,MOTRIN) 800 mg tablet Take 1 tablet (800 mg total) by mouth Active EPINEPHrine 0.3 mg/0.3 mL auto-injection syringeIndicati ons:Anaphylaxis Inject 0.3 mL (0.3 mg total) into the muscle as instructed as needed for anaphylaxis for up to 1 day Call 911 after use. 1 each 5 Active Active Problems Problem Noted Date Diagnosed Date Anxiety 01/08/2025 Obesity 01/08/2025 Systemic lupus erythematosus 01/08/2025 Acute pain of right knee 01/08/2025 Assessment & Plan (01/08/2025 11:48 AM CDT): Otalgia of both ears 01/08/2025 Assessment & Plan (01/08/2025 11:48 AM CDT): Screening for diabetes mellitus 01/08/2025 Assessment & Plan (01/08/2025 11:48 AM CDT): Orders: Comprehensive metabolic panel; Future Screening, anemia, deficiency, iron 01/08/2025 Assessment & Plan (01/08/2025 11:48 AM CDT): Orders: CBC with auto differential; Future Screening for lipid disorders 01/08/2025 Assessment & Plan (01/08/2025 11:48 AM CDT): Orders: Lipid panel; Future Annual physical exam 01/07/2025 Assessment & Plan (01/08/2025 11:48 AM CDT): Need for hepatitis C screening test 01/07/2025 Assessment & Plan (01/08/2025 11:48 AM CDT): Orders: Hepatitis C antibody Blood; Future Need for hepatitis B screening test 01/07/2025 Assessment & Plan (01/08/2025 11:48 AM CDT): Orders: Hepatitis B Surface Antigen Blood; Future Hepatitis B core antibody, total Blood; Future Hepatitis B surface antibody (immune status) Blood; Future Bee sting-induced anaphylaxis 12/13/2024 Pelvic pain 07/30/2024 Lower abdominal pain 07/30/2024 Encounter for screening mamm ogram for malignant neoplasm of breast 07/30/2024 Assessment & Plan (01/08/2025 11:48 AM CDT): Orders: SCREENING MAMMOGRAM BILATERAL W TAYA Class 2 obesity without seri ous comorbidity with body mass index (BMI) of 36.0 to 36.9 in adult 07/30/2024 Assessment & Plan (01/08/2025 11:48 AM CDT): BMI 39.51. Discussed healthy diet, routine exercise and encouraged weight loss. Assessment & Plan (07/30/2024 8:12 PM DESIGN PRINTER BALLOON): BMI 36.00. Encourage healthy diet, routine exercise and weight loss. Postoperative hypothyroidism 01/05/2024 Assessment & Plan (01/05/2024 3:22 PM CDT): Continue levothyroxine 200 mcg. This is followed by Endocrinology Acute pain of left shoulder 01/05/2024 Assessment & Plan (01/05/2024 3:24 PM CDT): Discussed use of heat/ice/exercises. Start on Relafen 500 mg b.i.d. p.r.n., metaxalone 800 mg up to t.i.d. p.r.n.. Should not take any other NSAIDs with the Relafen, can take Tylenol p.r.n.. Referral to Orthopedics Other forms of systemic lupus erythematosus 12/20 Assessment & Plan (01/05/2024 3:25 PM CDT): Continue present medications. This is followed by Rheumatology Endometriosis 09/17/2020 Assessment & Plan (01/05/2024 3:25 PM CDT): BMI 38.01. Discussed making dietary changes, trying to make healthier food choices including portion control. Encourage moderate intensity exercise 30 minutes 5 days per week. She was counseled on the importance of obtaining a healthy weight and the risks of obesity. Weight loss recommended. 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 Overview (11/24/2016): Goiter, nontoxic, multinodular Encounters Date Type Department Care Team Description 03/18/2025 Results Follow-Up [facility] Primary Care at [address] [place] [id number] Tennille Beauchamp NP SCREENING MAMMOGRAM BILATERAL W TAYA 03/13/2025 4:02 PM CDT - 03/13/2025 11:59 PM CDT Hospital Encounter [facility] [address] [place] [address] Discharge Disposition: Discharge to home or self care from Last 3 Months Immunizations Immunization Administration Dates Next Due Influenza, Unspecified 07/30/2024(Deferr ed: Patient Refused),07/01/2023(Deferred: Patient Refused),05/30/2023(Deferred: Patient Refused) Tdap 06/11/2011 Surgical History Surgery Date Site/Laterality Comments OTHER SURGICAL HISTORY 2003 Endometriosis: Hysterectomy TUBAL LIGATION Bilateral tubal ligation CHOLECYSTECTOMY 2009 Cholecystectomy TONSILLECTOMY 2001 Tonsillectomy SECTION 2000 section THYROIDECTOMY Thyroidectomy RADICAL HYSTERECTOMY Hysterectomy, radical Medical History Medical History Date Comments Endometritis Endometriosis Family History Medical History Relation Name Comments Other Father 2 Alive and well; Hypertension Mother Hypertension; Arthritis Other Family history of Arthritis; Blood Clot Other Family history of Blood clots; Cancer Other Family history of Cancer, unknown; Diabetes type II Other Family hist ory of Diabetes mellitus type 2; Gout Other Family history of Gout; Kidney disease Other Family histor y of kidney problems; Relation Name Status Comments Father 1 Alive Father 2 Mother Other Social History Tobacco Use Types Packs/Day Years Used Date Smoking Tobacco: Never Passive Smoke Exposure: Never Smokeless Tobacco: Never Tobacco Cessation:Counseling Given: Not Answered Alcohol Use Standard Drinks/Week Comments No 0 (1 standard drink = 0.6 oz pur e alcohol) AUDIT-C Answer Date Recorded Q1: How often do you have a drink containing alc ohol? 2-4 times a month 03/05/2024 Q2: How many drinks containi ng alcohol do you have on a typical day when you are drinking? 3 or 4 03/05/2024 Q3: How often do you have si x or more drinks on one occasion? Monthly 03/05/2024 PHQ-2 Answer Date Recorded PHQ-2 Total Score (If total score is 3 or more points, staff should administer the PHQ-9) 0 01/08/2025 Comments No Sex and Gender Information Value Date Recorded Sex Assigned at Not on file Legal Sex Female 9:53 AM DESIGN PRINTER BALLOON Gender Identity Not on file Sexual Orientation Not on file Obstetrics History Para Term AB IAB SAB Ectopic Multiple Livin g Live Births 1 1 Date Outcome GA Total Labor Labor/2nd/3rd Weight Sex Type Anes PTL Nta A1 A5 Name Clin Last Filed Vital Signs Vital Sign Reading Time Taken Comments Blood Pressure 118/80 01/08/2025 7:37 AM CDT Pulse 76 01/08/2025 7:37 AM CDT Temperature 36.7 C (98 F) 01/08/2025 7:37 AM CDT Respiratory Rate 18 04/10/2024 3:48 PM CDT Oxygen Saturation 98% 01/08/2025 7:37 AM CDT Inhaled Oxygen Concentration - - Weight 99.8 kg (220 lb) 03/13/2025 4:10 PM CDT Height 160 cm (5' 3) 03/13/2025 4:10 PM CDT Body Mass Index 38.97 03/13/2025 4:10 PM CDT Plan of Treatment Health Maintenance Due Date Last Done Comments Cervical Cancer Screening 1981 Hepatitis C Screening 1981 Hepatitis B Screening 12/29/1999 HPV Vaccines (1 - 3-dose SCD M series) 2008 DTaP/Tdap/Td Vaccine (2 - Td or Tdap) 06/11/2021 06/11/2011 Covid-19 Vaccine (3 - Pfizer risk series) 06/25/2021 05/28/2021, 05/06/2021 Influenza Vaccine (#1) 2025 Pneumococcal vaccine <65 (1 of 2 - PCV) 07/15/2025 Postponed from 12/28 (Patient declined, but will receive in the future) Zoster Vaccine (1 of 2) 07/30/2025 Post poned from 2000 (Patient declined, but will receive in the future) Depression Screening 01/08/2026 01/08/2025, 01/05/2024 Regular Well Visit/Exam 18-64 01/08/2026 01/08/2025 Varicella Vaccines (1 of 2 - 13+ 2-dose series) 01/08/2026 Postponed from 12/28 (Patient declined, but will receive in the future) Breast Cancer Screening-Mammogram 03/13/2026 03/13/2025 Procedures Procedure Name Priority Date/Time Associated Diagnosis Comments SCREENING MAMMOGRAM BILATERAL W TAYA Schedule Routine, Read Routine (OP Routine) 03/13/2025 4:16 PM CDT Encounter for screening mammogram for malignant neoplasm of breast from Last 3 Months Results * SCREENING MAMMOGRAM BILATERAL W TAYA (03/13/2025 4:16 PM CDT) Anatomical Region Laterality Modality Breast Bilateral Mammography Impressions 03/15/2025 7:22 PM CDT Bilateral No evidence of malignancy in either breast. OVERALL BI-RADS FINAL ASSESSMENT: 1 - Negative RECOMMENDATION: Recommend bilateral annual screening mammography. Narrative 03/15/2025 7:22 PM CDT EXAMINATION: SCREENING MAMMOGRAM BILATERAL W TAYA: 03/13/2025 COMPARISON: Relevant prior studies available at the time of interpretation were reviewed, including the most recent mammogram on: 07/02/2021. TECHNIQUE: Mammography was performed with 2D and digital breast tomosynthesis (DBT) images. CAD was utilized. BREAST PARENCHYMAL COMPOSITION: There are scattered areas of fibroglandular density. FINDINGS: Bilateral There is no suspicious mass, calcification, or architectural distortion in either breast. us Tennille Beauchamp LADLE LINER HELPER IMG MAMMO PROCEDURES Final Re sult from Last 3 Months Insurance [facility] CHO[facility] PL[facility] Care Teams Laundry Pricing Clerk Relationship Specialty Start Date End Date Tennille Beauchamp NP [address] [place] [address] PCP - General Family Medicine 01/05/24
--- OUTSIDE RECORDS SUMMARY | 2025-04-11 21:26 | XMS_ITS | Clinical Summary ---
Author Organization [facility] Address [address] [place] [id number] Phone [email or web address] Care Team Providers Care Operator Technician Name Role Phone Unavailable Primary Care Provider Unavailabl e Allergies Active Allergy Reactions Criticality Noted Date Comments Latex Hives,Itching,Rash,Swelling Medium 08/26/19 17 Penicillins Hives,Rash Medium 08/26/2016 Medications levothyroxine (SYNTHROID) 200 MCG tablet Take 200 mcg by mouth once daily as needed. Active ibuprofen (MOTRIN) 800 MG tablet Take 800 mg by mouth. Active escitalopram (LEXAPRO) 20 MG tablet Take 20 mg by mouth 1 (one) time each day. 08/11/2020 Active Active Problems Problem Noted Date Diagnosed Date SLE (systemic lupus erythematosus related syndro me) 09/17/2020 Endometriosis 09/17/2020 Social History Tobacco Use Types Packs/Day Years Used Date Smoking Tobacco: Never Smokeless Tobacco: Never Intimate Partner Violence Answer Date R ecorded Insults You Not on file 12/04/2020 Threatens You Not on file 12/04/2020 Screams at You Not on file 12/04/2020 Physically Hurt Not on file 12/04/2020 Intimate Partner Violence Score Not on file 12/04/2020 Stress Answer Date Recorded Stress in your Life 0 09/28/2020 Dealing with Stress Not on file 09/28/2020 Comments No Sex and Gender Information Value Date Recorded Sex Assigned at Not on file Legal Sex Female 12:36 AM CDT Gender Identity Female 09/17/2020 8:30 AM BATCHING OPERATOR Sexual Orientation Straight 09/17/2020 8: 30 AM BATCHING OPERATOR Last Filed Vital Signs Vital Sign Reading Time Taken Comments Blood Pressure - - Pulse - - Temperature - - Respiratory Rate - - Oxygen Saturation - - Inhaled Oxygen Concentration - - Weight 104 kg (230 lb) 09/17/2020 9:17 AM BATCHING OPERATOR Height 160 cm (5' 3) 09/17/2020 9:17 AM BATCHING OPERATOR Body Mass Index 40.74 09/17/2020 9:17 AM BATCHING OPERATOR Plan of Treatment Health Maintenance Due Date Last Done Comments Cervical Cancer Screening Combo 1981 Dental Cleaning/Exam 1981 HPV / Cotest 1981 Pap Testing 1981 HPV Immunization (1 - 2-dose series) 1992 Hepatitis B Immunization (1 of 3 - 19+ 3-dose series) 2000 Tetanus Diphtheria and Pertu ssis Immunization (1 - Tdap) 2000 Breast Cancer Screening 12/29/2011 Covid-19 Immunization (1 - 2 -25 season) 2024 Influenza Immunization (#1) 2025 HIB Immunization Aged Out No longer e ligible based on patient's age to complete this topic Hepatitis A Immunization Aged Out No longer eligible based on patient's age to complete this topic Pneumococcal: Ped (0 to 5 Yr s) and At-Risk Member (6 to 64 Yrs) Aged Out No longer e ligible based on patient's age to complete this topic Polio Immunization Aged Out No longer eligible based on patient's age to complete this topic Varicella Immunization Aged Out No lo nger eligible based on patient's age to complete this topic Insurance [facility]
--- OUTSIDE RECORDS SUMMARY | 2025-04-11 21:26 | XMS_ITS | Encounter Summary ---
Author Organization [facility] Healthcare Address [address] [place] [address] Care Team Providers Care Health And Safety Coordinator Name Role Phone Tennille Beauchamp NP Primary Care Provider [phone] Encounter Details Date Type Department Care Team (Late st Contact Info) Description 03/18/2025 Results Follow-Up [facility] Medical Group Primary Care at [address] [place] [address] Tennille Beauchamp NP [address] [place] [address] SCREENING MAMMOGRAM BILATERAL W TAYA Social History Tobacco Use Types Packs/Day Years Used Date Smoking Tobacco: Never Passive Smoke Exposure: Never Smokeless Tobacco: Never Alcohol Use Standard Drinks/Week Comments No 0 [...] on file Legal Sex Female 9:53 AM ROCKET PROPELLANT PLANT SUPERVISOR Gender Identity Not on file Sexual Orientation Not on file documented as of this encounter Plan of Treatment Not on file documented as of this encounter Visit Diagnoses Not on filedocumented in this encounter Care Teams Health And Safety Coordinator Relationship Specialty Start Date End Date Tennille Beauchamp NP [address] [facility] [address] [place] [address] PCP - General Family Medicine 01/05/24 documented as of this encounter
--- OUTSIDE RECORDS SUMMARY | 2025-04-11 21:27 | XMS_ITS | Clinical Summary ---
Author Organization [facility] Address [address] [place] [address] Phone Care Team Providers Care Credit Risk Review Officer Name Role Phone Archie Garcia MD Primary Care Provider Allergies Active Allergy Reactions Criticality Noted Date Comments Latex Hives 08/26/2016 Penicillins Hives 08/26/2016 Medications levothyroxine (SYNTHROID) 200 MCG Tablet Take 200 mcg by mouth daily. Active levothyroxine (SYNTHROID) 25 MCG Tablet Take 25 mcg by mouth daily. Active ibuprofen (MOTRIN) 800 MG Tablet Take 800 mg by mouth as needed. Active escitalopram (LEXAPRO) 10 MG Tablet Take 10 mg by mouth daily. 09/03/2019 Active dicyclomine (BENTYL) 20 MG Tablet Take 1 Tab by mouth every 6 hours. 30 Tab 09/17/2019 Active Social History Tobacco Use Types Packs/Day Years Used Date Smoking Tobacco: Never Smokeless Tobacco: Never Alcohol Use Standard Drinks/Week Comments Yes 0 (1 standard drink = 0.6 oz pur e alcohol) Comments No Sex and Gender Information Value Date Recorded Sex Assigned at Not on file Legal Sex Female 8:53 AM STRUCTURAL DESIGN ENGINEER Gender Identity Not on file Sexual Orientation Not on file Last Filed Vital Signs Vital Sign Reading Time Taken Comments Blood Pressure 152/89 09/17/2019 3:25 AM STRUCTURAL DESIGN ENGINEER Pulse 82 09/17/2019 3:25 AM STRUCTURAL DESIGN ENGINEER Temperature 36.9 C (98.5 F) 09/16/2019 9:39 PM STRUCTURAL DESIGN ENGINEER Respiratory Rate 16 09/17/2019 3:25 AM STRUCTURAL DESIGN ENGINEER Oxygen Saturation 99% 09/17/2019 3:25 AM STRUCTURAL DESIGN ENGINEER Inhaled Oxygen Concentration - - Weight 94.3 kg (208 lb) 09/16/2019 9:39 PM STRUCTURAL DESIGN ENGINEER Height 161.3 cm (5' 3.5) 09/16/2019 9:39 PM STRUCTURAL DESIGN ENGINEER Body Mass Index 36.27 09/16/2019 9:39 PM STRUCTURAL DESIGN ENGINEER Plan of Treatment Health Maintenance Due Date Last Done Comments Hepatitis C Virus (HCV) Screening 1981 TdaP Immunization 1981 Hepatitis B Immunization (1 of 3 - 19+ 3-dose series) 2000 Human Papillomavirus (HPV) Immunization (1 - 3-dose SCDM series) 2008 SARS-COV-2 Immunization ( - season) 2024 05/28/2021, 05/06/2021 Influenza Immunization (#1) 2025 Respiratory Syncytial Virus (RSV) Immunization (Adult) (1 - 1-dose 75+ series) 2056 Meningococcal Immunization (ACWY) Aged Out No longer eligible b ased on patient's age to complete this topic Pneumococcal Immunization Combined Aged Out No longer eligible b ased on patient's age to complete this topic Rotavirus Immunization Aged Out No lo nger eligible based on patient's age to complete this topic Care Teams Credit Risk Review Officer Relationship Specialty Start Date End Date Archie Garcia MD [address] [place] [address] [place] [address] PCP - General Cardiovascular Disease - Cardiology 09/16/19
[2025-04-11 22:47] LABS: Hematocrit 40.8 % (37.0-47.0); Hemoglobin 13.6 g/dL (12.0-15.0); Immature Granulocyte Percent A 0.2 % (0-0.5); Lymphocytes Absolute Auto 3.72 K/mm3 (0.9-3.2); Mean Corpuscular HGB Conc 33.3 g/dl (32-36); Mean Corpuscular Hemoglobin 28.1 pg (26-34); Mean Corpuscular Volume 84.3 fl (80-100); Nucleated Red Blood Cells Absolute Auto 0.000 K/mm3 (0.0-0.012); Nucleated Red Blood Cells Perc 0.0 % (0.0-0.2); Platelet Count Result 264 k/mm3 (150-375); Red Blood Count 4.84 M/mm3 (4.2-5.4); White Blood Count 9.8 K/mm3 (4.5-10.0)
[2025-04-11 23:03] LABS: Alanine Aminotransferase 27 U/L (6-35); Albumin Level 4.1 g/dL (3.5-5.1); Alkaline Phosphatase 77 U/L (38-126); Anion Gap 7 mmol/L (4-12); Aspartate Amino Transferase 31 U/L (14-36); Bilirubin,Total 0.2 mg/dL (0.2-1.3); Blood Urea Nitrogen 16 mg/dL (7-17); CRP 0.9 mg/dL (<1.0); Calcium 9.0 mg/dL (8.4-10.2); Carbon Dioxide 27 mmol/L (22-30); Chloride 102 mmol/L (98-107); Estimated CRCL calculation 94 ml/min; Estimated Glomerular Filt Rate > 60; Glucose 102 mg/dL (65-110); Potassium 3.7 mmol/L (3.4-5.0); Sodium 136 mmol/L (137-145); Total Protein 7.2 g/dL (6.3-8.2)
[2025-04-11 23:09] LABS: SPREG INTERNAL CONTROL Positive; Serum Qual hCG Negative
[2025-04-11 23:25] LABS: Influenza A QL RT-PCR Negative (Negative); Influenza B QL RT-PCR Negative (Negative); SARS-CoV-2 RNA PCR Negative (Negative)
--- NOTE | 2025-04-11 23:37 | ED.GENADULT ---
HPI - General Adult General Chief complaint: Headache Stated complaint: stiff neck, headache, recent tick bite Time Seen by Provider: 04/11/25 22:17 History of Present Illness HPI narrative: Patient is a 44-year-old female who presents to the emergency department this evening complaining of headache and stiff neck for the past 4 days since Tuesday. states that it initially started as a mild headache and has significantly progressed. Denies any sudden onset worst headache of her life sensation which is why she waited 4 days to come in. Denies any falls, trauma or head injury. Patient states that she spent the weekend camping and on a fluids tripped and on Tuesday she noticed a tick to the top of her head. Patient states that she removed it but is not 100% convinced it was a tick bite. Since then patient has developed some red spots to her body, and headache and stiff neck which has been progressively getting worse. Denies any fevers but states that she has not checked her temperature. Admits to nausea but denies any vomiting episodes. Patient states that she never gets headaches and this is very unusual for her. Patient also states that her blood pressure was also elevated today which is unusual for her, she does not have any history of high blood pressure. Denies any focal weakness, numbness and/or tingling, or vision changes. Patient states the headache has persisted despite her using multiple [id number] medications. Related Data Home Medications ?Medication ?Instructions ?Recorded ?Confirmed ?Last Taken ?Type hydroxychloroquine 200 mg tablet 200 mg PO DAILY 06/09/23 04/12/25 Unknown History ergocalciferol (vitamin D2) 1,250 50,000 unit PO WEEKLY 12/18/23 04/12/25 Unknown History mcg (50,000 unit) capsule escitalopram oxalate 10 mg tablet 10 mg PO DAILY 12/18/23 04/12/25 Unknown History estradiol 1 mg tablet 1 mg PO DAILY 12/18/23 04/12/25 Unknown History levothyroxine 200 mcg tablet 200 mcg PO DAILY 12/18/23 04/12/25 Unknown History Allergies Allergy/AdvReac Type Severity Reaction Status Date / Time Sulfa (Sulfonamide Allergy Mild Rash Verified 04/11/25 21:40 Antibiotics) latex Allergy Unknown Rash Verified 04/11/25 21:40 Penicillins Allergy Unknown Rash Verified 04/11/25 21:40 Review of Systems Review of Systems: All systems are reviewed and are negative unless stated otherwise in the HPI. COUNTS INCLUDE 234 BEDS AT THE [facility] Past Medical History Medical History (Updated 04/12/25 @ 02:34 by ZOEY Rowe) Insect bite Elevated blood pressure reading History of hypothyroidism Surgical History Surgical History H/O thyroidectomy History of section History of cholecystectomy History of hysterectomy Family History Family History (Updated 04/12/25 @ 03:40 by Trudy Altman RN) Son Cerebrovascular accident Mother Diabetes mellitus Hypertension Social History Social History Smoking status: Never smoker Substance use: never Exam Narrative: General: Alert, awake, afebrile, in no acute distress. HEENT: PERRL, no rhinorrhea, no post nasal drip, oropharynx clear, nuchal rigidity. Neck: Trachea midline, no JVD, no lymphadenopathy. Cardiovascular: Regular rate and rhythm, no murmurs, rubs or gallops, no peripheral edema. Respiratory: Clear to auscultation bilaterally, no tachypnea, no wheezing, no rhonchi, no rubs, no respiratory distress. Abdomen: Soft, nontender, nondistended, no rebound, no guarding, no peritoneal signs. Musculoskeletal: No joint swelling or deformity, normal muscle tone. Skin: No rashes or petechia, no signs of infection. Psychiatric: Alert and oriented, normal behavior and judgment for situation. Neurological: Alert and oriented to person, place, and time. Follows all commands. No focal deficits, speech is clear and fluent, gait intact and normal. Course Vital Signs Vital signs: Vital Signs Temperature 97.7 F 04/11/25 21:37 Pulse Rate 68 04/11/25 21:37 Respiratory Rate 18 04/11/25 21:37 Blood Pressure 170/101 H 04/11/25 21:37 Pulse Oximetry 99 04/11/25 21:37 Oxygen Delivery Room Air 04/11/25 21:37 Temperature 97.8 F 04/12/25 03:47 Pulse Rate 74 04/12/25 03:47 Respiratory Rate 16 04/12/25 03:47 Blood Pressure 138/85 04/12/25 03:47 Pulse Oximetry 97 04/12/25 03:47 Oxygen Delivery Room Air 04/11/25 21:37 Procedures Lumbar Puncture Lumbar Puncture #1: Lumbar Puncture Date: 04/12/25 Lumbar Puncture Time: 01:44 Patient Position: upright Skin Prep: Povidone-Iodine 1% Anesthetic: lidocaine 1% Amount of anesthesia used (mL): 1 Spinal Needle Gauge: 22G Interspace Used: L3-L4 Spinal Fluid: fluid obtained Fluid Initially Obtained: clear Complications: none Medical Decision Making MDM Narrative Medical decision making narrative: The patient was evaluated by myself in the emergency department. History is obtained from patient who is an independent historian and physical exam was performed. External medical records were reviewed at this time. IV was established and pertinent tests were ordered. Patient was administered 1 g of oral Tylenol, 4 mg of IV Zofran and 2 mg of IV morphine for headache. Patient was also started on IV antibiotics with vancomycin and Rocephin to cover her for meningitis and and started on IV dexamethasone. Patient was also administered 1 time dose of doxycycline 200 mg IV for Lyme disease prophylaxis pending tick-borne illness panel. Laboratory results obtained revealing no acute process, inflammatory markers negative. Imaging studies obtained included CXR and CT brain without IV contrast which was independently interpreted by me revealing no acute process, which is pending final radiology interpretation. LP was performed at this time after both verbal and written consent was obtained as detailed under procedural note above. Full tick borne illness panel was also obtained at this time. Differential diagnosis considerations include tick borne illness, meningitis, acute viral syndrome, migraine headache, tension headache, dehydration. Comorbidities impacting this visit include none. I have evaluated and discussed social determinants of health with the patient that could potentially impact subsequent diagnosis and treatment plans. On repeat assessment of the patient, reevaluation revealed that the patient is doing well and is in no acute distress. Patient symptoms have improved since she arrived to our emergency department. Repeat vital signs were all reviewed and noted to be stable. Differential diagnosis and treatment plan were discussed with the patient at bedside. Patient agrees with discussion and after shared medical decision making agrees with admission. All questions were answered to the patient's satisfaction. Case discussed with the on-call neurologist Dr. Rouse regarding consult at 2345. Case was also discussed with the on-call hospitalist MARYBETH Doe after LP was performed at 0145 and she accepted admission. Vital Signs Vital Signs: Vital Signs Temperature 97.7 F 04/11/25 21:37 Pulse Rate 68 04/11/25 21:37 Respiratory Rate 18 04/11/25 21:37 Blood Pressure 170/101 H 04/11/25 21:37 Pulse Oximetry 99 04/11/25 21:37 Oxygen Delivery Room Air 04/11/25 21:37 Temperature 97.8 F 04/12/25 03:47 Pulse Rate 74 04/12/25 03:47 Respiratory Rate 16 04/12/25 03:47 Blood Pressure 138/85 04/12/25 03:47 Pulse Oximetry 97 04/12/25 03:47 Oxygen Delivery Room Air 04/11/25 21:37 Lab Data 04/11/25 22:41 04/11/25 22:41 Labs: Lab Results 04/11/25 04/12/25 04/12/25 Range/Units 22:41 00:17 01:51 WBC 9.8 (4.5-10.0) K/mm3 RBC 4.84 (4.2-5.4) M/mm3 Hgb 13.6 (12.0-15.0) g/dL Hct 40.8 (37.0-47.0) % MCV 84.3 (80-100) fl MCH 28.1 (26-34) pg MCHC 33.3 (32-36) g/dl RDW 13.2 (11.5-14.5) % Plt Count 264 (150-375) k/mm3 MPV 9.7 (7.4-10.4) fl Immature Gran % (Auto) 0.2 (0-0.5) % Neut % (Auto) 53.5 (45.5-73.1) % Lymph % (Auto) 38.2 (18.3-44.2) % [place] % (Auto) 5.8 (2.6-8.5) % Eos % (Auto) 1.8 (0-4.4) % Baso % (Auto) 0.5 (0.2-1.2) % Lymph # (Auto) 3.72 H (0.9-3.2) K/mm3 [place] # (Auto) 0.6 (0.1-0.6) K/mm3 Eos # (Auto) 0.2 (0-0.3) K/mm3 Baso # (Auto) 0.1 (0.0-0.1) K/mm3 Abs Immat Gran (auto) 0.02 (0.00-0.031) K/mm3 Absolute Neuts (auto) 5.2 (1.3-6.7) K/mm3 Absolute Nucleated RBC 0.000 (0.0-0.012) K/mm3 Nucleated RBC % 0.0 (0.0-0.2) % ESR 20 (0-20) mm/hr Sodium 136 L (137-145) mmol/L Potassium 3.7 (3.4-5.0) mmol/L Chloride 102 (98-107) mmol/L Carbon Dioxide 27 (22-30) mmol/L Anion Gap 7 (4-12) mmol/L BUN 16 (7-17) mg/dL Creatinine 0.76 (0.7-1.0) mg/dL Estim Creat Clear Calc 94 ml/min Estimated GFR > 60 (59 - ) Glucose 102 (65-110) mg/dL Calcium 9.0 (8.4-10.2) mg/dL Total Bilirubin 0.2 (0.2-1.3) mg/dL AST 31 (14-36) U/L ALT 27 (6-35) U/L Alkaline Phosphatase 77 (38-126) U/L C-Reactive Protein 0.9 (<1.0) mg/dL Total Protein 7.2 (6.3-8.2) g/dL Albumin 4.1 (3.5-5.1) g/dL TSH (Reflex) Pending Serum HCG, Qual Negative Urine Color Yellow (Yellow) Urine Appearance Cloudy H (Clear) Urine pH 6.5 (5.0-9.0) Ur Specific [place] 1.019 (1.001-1.035) Urine Protein Negative (Negative) mg/dL Urine Glucose (UA) Negative (Negative) mg/dL Urine Ketones Negative (Negative) mg/dL Ur Blood (Man) Negative (Negative) Urine Nitrate Negative (Negative) Urine Bilirubin Negative (Negative) Urine Urobilinogen 0.2 (<2.0) mg/dL Leukocyte Esterase Rfl Negative (Negative) ENRRIQUE/UL Urine RBC 0-2 (0-2) /hpf Urine WBC 0-5 (0-3) /hpf Ur Squamous Epith Cells None seen (Few) /hpf Urine Bacteria None seen /hpf Urine Casts 0-2 CSF Source Csf CSF Appearance Clear (Clear) CSF Color Colorless (Colorless) CSF RBC 1.1 (0-2) CSF Tot Nucleated Cells 0 (0-5) /uL CSF Neutrophils 0 (0-6) % CSF Lymphocytes 1 L (40-80) % CSF Monocytes 0 L (15-45) % CSF Eosinophils 0 % CSF Macrophages 0 CSF Glucose (40-70) mg/dL CSF Lactate CSF Lactat/Pyruv Intrp CSF Total Protein (12-60) mg/dL CSF Albumin (MS) CSF IgG (MS) CSF IgG/Alb Ratio MS CSF Alb/Ser Alb Indx MS CSF IgG Synth Rate MS CSF Oligoclonal Bands CSF/Serum IgG Index CSF VDRL CSF Lyme IgG Ab Interp CSF Lyme P93 IgG Line Blot CSF Lyme P66 IgG Line Blot CSF Lyme P58 IgG Line Blot CSF Lyme P45 IgG Line Blot CSF Lyme P41 IgG Line Blot CSF Lyme P39 IgG Line Blot CSF Lyme P30 IgG Line Blot CSF Lyme P28 IgG Line Blot CSF Lyme P23 IgG Line Blot CSF Lyme P18 IgG Line Blot CSF Lyme P41 IgM Line Blot CSF Lyme P39 IgM Line Blot CSF Lyme P23 IgM Line Blot CSF Lyme IgM Ab Interp CSF EBV DNA (PCR) CSF Herpes I DNA (PCR) Pending CSF Herpes II DNA (PCR) Pending IgG West [place] Virus Source Pending [place] RNA (RT-PCR) Pending Influenza A (RT-PCR) Negative (Negative) Influenza B (RT-PCR) Negative (Negative) SARS-CoV-2 RNA (RT-PCR) Negative (Negative) 04/12/25 04/12/25 Range/Units 01:52 01:52 WBC (4.5-10.0) K/mm3 RBC (4.2-5.4) M/mm3 Hgb (12.0-15.0) g/dL Hct (37.0-47.0) % MCV (80-100) fl MCH (26-34) pg MCHC (32-36) g/dl RDW (11.5-14.5) % Plt Count (150-375) k/mm3 MPV (7.4-10.4) fl Immature Gran % (Auto) (0-0.5) % Neut % (Auto) (45.5-73.1) % Lymph % (Auto) (18.3-44.2) % Fa[place]ner % (Auto) (2.6-8.5) % Eos % (Auto) (0-4.4) % Baso % (Auto) (0.2-1.2) % Lymph # (Auto) (0.9-3.2) K/mm3 [place] # (Auto) (0.1-0.6) K/mm3 Eos # (Auto) (0-0.3) K/mm3 Baso # (Auto) (0.0-0.1) K/mm3 Abs Immat Gran (auto) (0.00-0.031) K/mm3 Absolute Neuts (auto) (1.3-6.7) K/mm3 Absolute Nucleated RBC (0.0-0.012) K/mm3 Nucleated RBC % (0.0-0.2) % ESR (0-20) mm/hr Sodium (137-145) mmol/L Potassium (3.4-5.0) mmol/L Chloride (98-107) mmol/L Carbon Dioxide (22-30) mmol/L Anion Gap (4-12) mmol/L BUN (7-17) mg/dL Creatinine (0.7-1.0) mg/dL Estim Creat Clear Calc ml/min Estimated GFR (59 - ) Glucose (65-110) mg/dL Calcium (8.4-10.2) mg/dL Total Bilirubin (0.2-1.3) mg/dL AST (14-36) U/L ALT (6-35) U/L Alkaline Phosphatase (38-126) U/L C-Reactive Protein (<1.0) mg/dL Total Protein (6.3-8.2) g/dL Albumin Pending (3.5-5.1) g/dL TSH (Reflex) Serum HCG, Qual Urine Color (Yellow) Urine Appearance (Clear) Urine pH (5.0-9.0) Ur Specific [place] (1.001-1.035) Urine Protein (Negative) mg/dL Urine Glucose (UA) (Negative) mg/dL Urine Ketones (Negative) mg/dL Ur Blood (Man) (Negative) Urine Nitrate (Negative) Urine Bilirubin (Negative) Urine Urobilinogen (<2.0) mg/dL Leukocyte Esterase Rfl (Negative) ENRRIQUE/UL Urine RBC (0-2) /hpf Urine WBC (0-3) /hpf Ur Squamous Epith Cells (Few) /hpf Urine Bacteria /hpf Urine Casts CSF Source CSF Appearance (Clear) CSF Color (Colorless) CSF RBC (0-2) CSF Tot Nucleated Cells (0-5) /uL CSF Neutrophils (0-6) % CSF Lymphocytes (40-80) % CSF Monocytes (15-45) % CSF Eosinophils % CSF Macrophages CSF Glucose 55 (40-70) mg/dL CSF Lactate Pending CSF Lactat/Pyruv Intrp Pending CSF Total Protein 33 (12-60) mg/dL CSF Albumin (MS) Pending CSF IgG (MS) Pending CSF IgG/Alb Ratio MS Pending CSF Alb/Ser Alb Indx MS Pending CSF IgG Synth Rate MS Pending CSF Oligoclonal Bands Pending Pending CSF/Serum IgG Index Pending CSF VDRL Pending CSF Lyme IgG Ab Interp Pending CSF Lyme P93 IgG Line Blot Pending CSF Lyme P66 IgG Line Blot Pending CSF Lyme P58 IgG Line Blot Pending CSF Lyme P45 IgG Line Blot Pending CSF Lyme P41 IgG Line Blot Pending CSF Lyme P39 IgG Line Blot Pending CSF Lyme P30 IgG Line Blot Pending CSF Lyme P28 IgG Line Blot Pending CSF Lyme P23 IgG Line Blot Pending CSF Lyme P18 IgG Line Blot Pending CSF Lyme P41 IgM Line Blot Pending CSF Lyme P39 IgM Line Blot Pending CSF Lyme P23 IgM Line Blot Pending CSF Lyme IgM Ab Interp Pending CSF EBV DNA (PCR) Pending CSF Herpes I DNA (PCR) CSF Herpes II DNA (PCR) IgG Pending West Nile Virus Source [place] RNA (RT-PCR) Influenza A (RT-PCR) (Negative) Influenza B (RT-PCR) (Negative) SARS-CoV-2 RNA (RT-PCR) (Negative) Discharge Plan Discharge Clinical Impression: Headache Patient Disposition: Still a Patient Condition: Improved Time of Disposition: 01:10
[2025-04-11] MEDS: dexAMETHasone SOD PHOS INJ 10 MG/ML 1 ML VIAL IV PUSH (23:55)
[2025-04-11] MEDS: MORPHINE SULFATE (*CRX) 2 MG/ML INJ IV PUSH (23:55)
[2025-04-11] MEDS: ONDANSETRON INJ 4 MG/2 ML VIAL IV PUSH (23:55)
[2025-04-11] MEDS: ACETAMINOPHEN 500 MG TABLET 1000 MG PO (23:55)
[2025-04-12] VITALS (31 sets, daily range): BP systolic 117–188; BP diastolic 65–146; PULSE 64–100; RESP 12–22; TEMP 36.4–37.2; O2SAT 95–100; BMI 40.9
[2025-04-12 00:27] LABS: Add Urine Microscopic? YES; Appearance Urine Cloudy (Clear); Glucose Urine UA Negative (Negative); Leukocyte Esterase Ur Negative LEU/UL (Negative); Nitrate Urine Negative (Negative); Non Pathogenic Casts 0-2; Specific Grav Ur 1.019 (1.001-1.035)
--- NOTE | 2025-04-12 00:49 | PC.NURSE ---
[facility]
[2025-04-12] MEDS: cefTRIAXone 2 GM in SODIUM CHLORIDE 0.9% IV 100 ML 200 ML IVPB ×3 (01:34→23:12)
[2025-04-12] MEDS: VANCOMYCIN 1,250 MG/NS 250 ML 1,250 MG/250 ML BAG 166.67 MG IVPB ×2 (02:09→05:45)
--- NOTE | 2025-04-12 02:24 | P.HP_ITS ---
H&P: HPI History of Present Illness Date/Time: 04/12/25 02:24 Chief Complaint: Headache, stiff neck Narrative: This is a 44-year-old female patient with past medical history of hypothyroidism secondary to thyroidectomy secondary to thyroid cancer, lupus and estradiol therapy who comes to the emergency room with complaints of having 3 days persistent headache, and stiff neck. Patient reports that over the weekend she was camping and something had bit her on her head. She thought it was potentially a tick and picked it off but is uncertain exactly what bit her all she knows is that she has a small red arben on her scalp she was bitten. She also notes that she had a couple other red james next to her right buttock and then on her left thigh where she had been bitten by something. Both she and her presumed it was a potential tick but they are uncertain. Patient states on Tuesday then she started having severe headaches which is something she does not normally have in she notes it is an ache that starts at 1 yazdanism and moves across the front of her head to the other yazdanism. She reports stiff neck without any injury, trauma or inciting event and the headache does not respond any [id number] medications that she has used for analgesia. Patient reports that she occasionally has blurry vision in both eyes, not 1 over the other. Patient denies having have mixed any doses of her thyroid replacement. She denies any nausea/vomiting/diarrhea/chest pain or dyspnea. In the emergency room workup was performed. Vital signs are noted to have some elevated blood pressures which is out of the norm for the patient. She does not take any blood pressure medication and states her blood pressure is not normally run high. CBC is normal without any noted leukocytosis, and preserved H&H and platelets. Metabolic panel is normal. Urinalysis is normal. Blood cultures x2 are pending. [place], Flu, COVID. LP was performed and cytology labs are pending as well as a tick-borne illness panel. Chest x-ray was performed and is negative for any acute cardiopulmonary abnormalities. CT of the head was performed and is also negative for any acute cardiopulmonary abnormalities. The LP was clear/champagne colored without any blood. She was started on Vancomycin, Rocephin and Doxycycline and has been given Dexamethasone 10 mg. ER physician has spoken with neurologist, Dr. Rouse, and pt is being admitted in the current setting for further evaluation, monitoring and workup. Review of Systems Review of Systems: All systems reviewed & are unremarkable except as noted in HPI and below PMFSH Past Medical History Medical History (Updated 04/12/25 @ 02:34 by ZOEY Rowe) Insect bite Elevated blood pressure reading History of hypothyroidism Surgical History Surgical History H/O thyroidectomy History of section History of cholecystectomy History of hysterectomy Social History Social History Smoking status: Never smoker Substance use: never Meds Home Medications and Allergies Home Medications ?Medication ?Instructions ?Recorded ?Confirmed ?Type escitalopram oxalate 20 mg tablet 20 mg PO DAILY 05/1306/09/23 History levothyroxine 200 mcg tablet 200 mcg PO DAILY 05/13/21 06/09/23 History hydroxychloroquine 200 mg tablet 200 mg PO DAILY 06/0906/09/23 History ergocalciferol (vitamin D2) 1,250 12/18/23 History mcg (50,000 unit) capsule escitalopram oxalate 10 mg tablet mg 12/18/23 History estradiol 1 mg tablet mg 12/18/23 History ibuprofen 800 mg tablet mg 12/18/23 History levothyroxine 200 mcg tablet mcg 12/18/23 History Allergies Allergy/AdvReac Type Severity Reaction Status Date / Time Sulfa (Sulfonamide Allergy Mild Rash Verified 04/11/25 21:40 Antibiotics) latex Allergy Unknown Rash Verified 04/11/25 21:40 Penicillins Allergy Unknown Rash Verified 04/11/25 21:40 Vital Signs Vital Signs - 24 hr 04/11/25 21:37 04/11/25 21:56 04/11/25 21:57 Temperature 97.7 F Pulse Rate 68 80 Respiratory Rate 18 Blood Pressure 170/101 H Pulse Oximetry 99 99 Oxygen Delivery Room Air 04/11/25 21:58 04/11/25 22:00 04/11/25 22:15 Temperature Pulse Rate 71 67 Respiratory Rate 21 H 21 H Blood Pressure 168/107 H Pulse Oximetry 98 98 98 Oxygen Delivery 04/11/25 22:18 04/11/25 22:20 04/11/25 22:34 Temperature Pulse Rate 66 68 Respiratory Rate 17 Blood Pressure 171/104 H 171/104 H Pulse Oximetry 98 97 Oxygen Delivery 04/11/25 22:36 04/11/25 22:45 04/11/25 22:49 Temperature Pulse Rate 70 70 68 Respiratory Rate 17 20 16 Blood Pressure 169/108 H 147/115 H Pulse Oximetry 98 98 100 Oxygen Delivery 04/11/25 23:00 04/11/25 23:15 04/11/25 23:18 Temperature Pulse Rate 73 62 72 Respiratory Rate 17 15 20 Blood Pressure 140/74 Pulse Oximetry 98 97 97 Oxygen Delivery 04/11/25 23:30 04/11/25 23:31 Temperature Pulse Rate 68 69 Respiratory Rate 19 17 Blood Pressure 183/105 H Pulse Oximetry 98 99 Oxygen Delivery Exam Const: General: comfortable and no acute distress Other: Obese female patient sitting up in bed at this time in no acute distress but does appear to be tired and ill. HENMT: Face/Nose/Sinus: Normal nares present Mouth: Yes moist mucous membranes Eyes: General: appearance normal, both eyes and all related structures Sclera: sclerae normal Pupils: Equal, round and reactive pupils present EOM: EOMs intact bilaterally Neck: Neck: not supple (Stiff neck, however no rigidity) and no JVD Thyroid: abnormal thyroid (Absent) Lymphatic: lymphadenopathy not noted Other: Negative Kernig and Brudzinski's signs. Resp: Effort & Inspection: normal respiratory effort Auscultation: clear to auscultation bilaterally Cardio: Rate: regular rate Rhythm: regular rhythm Heart sounds: no gallops, no murmurs and no rubs GI: GI Palp: Yes Soft to palpation and No Tenderness to palpation present (GI) Auscultation: normal bowel sounds Skin: General skin exam: normal color, no rashes or lesions noted and no erythema Lesions: no lesions noted Rashes: no rashes noted Wounds: no wounds Other: Anterior scalp with small area scabbing noted. No induration noted. Appears as an insect bite. Neuro: Speech: normal speech Motor exam (neuro): 5/5 motor strength present throughout and Normal motor muscle tone present throughout Sensory Exam: normal sensation Extrem: General: normal to inspection, no edema and no pedal edema Other: Patient with stiff neck. Active range of motion in full range of motion is present but she reports stiffness in the muscles. Psych: Mental Status: mental status grossly normal Affect: normal affect H&P: Results Labs Labs: Short CBC 04/11/25 Range/Units 22:41 WBC 9.8 (4.5-10.0) K/mm3 Hgb 13.6 (12.0-15.0) g/dL Hct 40.8 (37.0-47.0) % Plt Count 264 (150-375) k/mm3 BMP 04/11/25 22:41 Sodium 136 L Potassium 3.7 Chloride 102 Carbon Dioxide 27 BUN 16 Creatinine 0.76 Glucose 102 Calcium 9.0 Liver Function 04/11/25 Range/Units 22:41 Total Bilirubin 0.2 (0.2-1.3) mg/dL AST 31 (14-36) U/L ALT 27 (6-35) U/L Alkaline Phosphatase 77 (38-126) U/L Albumin 4.1 (3.5-5.1) g/dL Urine 04/12/25 Range/Units 00:17 Urine Color Yellow (Yellow) Urine Appearance Cloudy H (Clear) Urine pH 6.5 (5.0-9.0) Ur Specific [place] 1.019 (1.001-1.035) Urine Protein Negative (Negative) mg/dL Urine Glucose (UA) Negative (Negative) mg/dL Assessment and Plan Assessment and plan (1) Headache: Code(s): R51.9 - Headache, unspecified Status: Acute Assessment and Plan: * Associated with stiff neck. * Labs unremarkable * LP results pending -low suspicion of meningococcal infection. * Tick-borne illness labs pending * Consult neuro * MR brain and brainstem ordered * Analgesia with Tylenol 1000 mg q.8 hours p.r.n. mild pain * [place] 5/320 1 tablet p.o. q.4 hours p.r.n. moderate pain * Morphine 4 mg IV push q.4 hours p.r.n. severe pain * Continue IV fluids of normal saline at 100 mL/hour * Continue IV antibiotics of vancomycin, Rocephin and doxycycline. * Continue dexamethasone 10 mg q.6 hours (2) Elevated blood pressure reading: Code(s): R03.0 - Elevated blood-pressure reading, without diagnosis of hypertension Status: Acute Assessment and Plan: * Blood pressures running elevated without any history hypertension. * Continue to trend blood pressures * Hydralazine 10 mg IV push with parameters of systolic greater than 180 and diastolic greater than 90 ordered. (3) Insect bite: Code(s): W57.XXXA - Bitten or stung by nonvenomous insect and other nonvenomous arthropods, initial encounter Status: Acute Assessment and Plan: * Unknown definite insect although patient and her spouse believes it was likely a tick. * Continue doxycycline as a precaution * Await tick-borne panel Quality VTE Prophylaxis VTE prophylaxis: pharmacologic ordered Hospitalist MIPS Advance Care Plan I have confirmed that the patient's Advanced Care Plan is present, code status is documented, or surrogate decision maker is listed in patient medical record.: Yes Medication Reconciliation I have utilized all available resources to obtain, update and review the patients current medications (includes all prescriptions, OTC, herbals, can nabis, and nutritional supplements).: Yes
[2025-04-12] MEDS: KETOROLAC 15 MG/ML VIAL (*BKC) IV PUSH ×2 (02:31→13:37)
[2025-04-12] MEDS: SODIUM CHLORIDE 0.9% IV 200 ML (02:33)
[2025-04-12] MEDS: METOCLOPRAMIDE HCL INJ 10 MG/2 ML VIAL IV PUSH ×2 (02:33→13:37)
[2025-04-12 03:00] LABS: Nucleated Cell CSF 0 /uL (0-5)
[2025-04-12] MEDS: DOXYCYCLINE IVPB (03:01)
[2025-04-12] MEDS: [UNRECOGNIZED DRUG - OTHER] IVPB (03:01)
[2025-04-12 03:02] LABS: Lymphocytes CSF 1 % (40-80); Macrophages CSF 0; Monocytes CSF 0 % (15-45); Neutrophils CSF 0 % (0-6)
--- NOTE | 2025-04-12 03:37 | ADMGEN ---
This patient, Mayra Espinal, was admitted to Medical Room 250-01. Patient/family oriented to hospital policies and general routines including ID bracelet, bed and alarms, visiting hours, pain management, procedures, bathroom and other care routines, personal items, smoking policy, room service/diet, and visiting hours. Information on how to activate the Rapid Response Team has been discussed. Patient/Family are encouraged to report perceived risks to care and to ask questions if they do not understand what they are told or what they should do.
[2025-04-12] MEDS: SODIUM CHLORIDE 0.9% IV 1,000 ML 100 ML IV CONT ×2 (03:53→21:41)
[2025-04-12 04:00] LABS: Red Blood Cell CSF 1.1 (0-2)
[2025-04-12 04:07] LABS: Thyroid Stimulating Hormone Reflex 13.400 uIU/mL (0.465-4.68)
[2025-04-12] MEDS: ACETAMINOPHEN 500 MG TABLET 1000 MG PO ×2 (04:18→12:19)
[2025-04-12] MEDS: dexAMETHasone SOD PHOS INJ 10 MG/ML 1 ML VIAL IV PUSH ×4 (05:45→23:13)
[2025-04-12] MEDS: LEVOTHYROXINE SODIUM 100 MCG TABLET 200 MCG PO (06:51)
[2025-04-12 06:57] LABS: Free T4 Free Thyroxine Reflex 1.17 ng/dL (0.78-2.19)
[2025-04-12] MEDS: HYDROXYCHLOROQUINE SULFATE 200 MG TABLET PO (08:21)
[2025-04-12] MEDS: ESCITALOPRAM OXALATE 10 MG TABLET PO (08:21)
--- NOTE | 2025-04-12 09:07 | P.PNIM_ITS ---
Progress Note: A&P Assessment and Plan (1) Headache: Code(s): R51.9 - Headache, unspecified Status: Acute Assessment and Plan: * Associated with stiff neck. * Labs unremarkable * LP results pending -low suspicion of meningococcal infection. * Tick-borne illness labs pending * Consult neuro * MR brain and brainstem ordered * Analgesia with Tylenol 1000 mg q.8 hours p.r.n. mild pain * Albion 5/320 1 tablet p.o. q.4 hours p.r.n. moderate pain * Morphine 4 mg IV push q.4 hours p.r.n. severe pain * Continue IV fluids of normal saline at 100 mL/hour * Continue IV antibiotics of vancomycin, Rocephin and doxycycline. * Continue dexamethasone 10 mg q.6 hours * * Toradol/reglan x1 for headache as it helped in ed * (2) Elevated blood pressure reading: Code(s): R03.0 - Elevated blood-pressure reading, without diagnosis of hypertension Status: Acute Assessment and Plan: * Blood pressures running elevated without any history hypertension. * Continue to trend blood pressures * Hydralazine 10 mg IV push with parameters of systolic greater than 180 and diastolic greater than 90 ordered. (3) Insect bite: Code(s): W57.XXXA - Bitten or stung by nonvenomous insect and other nonvenomous arthropods, initial encounter Status: Acute Assessment and Plan: * Unknown definite insect although patient and her spouse believes it was likely a tick. * Continue doxycycline as a precaution * Await tick-borne panel * lidocaine popacth to back if needed Time Spent With Patient Time with patient: 25 - 35 minutes Subjective Date/time seen: 04/12/25 09:07 Interval history: Per HPI: This is a 44-year-old female patient with past medical history of hypothyroidism secondary to thyroidectomy secondary to thyroid cancer, lupus and estradiol therapy who comes to the emergency room with complaints of having 3 days persistent headache, and stiff neck. Patient reports that over the weekend she was camping and something had bit her on her head. She thought it was potentially a tick and picked it off but is uncertain exactly what bit her all she knows is that she has a small red arben on her scalp she was bitten. She also notes that she had a couple other red james next to her right buttock and then on her left thigh where she had been bitten by something. Both she and her presumed it was a potential tick but they are uncertain. Patient states on Tuesday then she started having severe headaches which is something she does not normally have in she notes it is an ache that starts at 1 presybeterian and moves across the front of her head to the other presybeterian. She reports stiff neck without any injury, trauma or inciting event and the headache does not respond any ouie-iea-gudblyu medications that she has used for analgesia. Patient reports that she occasionally has blurry vision in both eyes, not 1 over the other. Patient denies having have mixed any doses of her thyroid replacement. She denies any nausea/vomiting/diarrhea/chest pain or dyspnea. In the emergency room workup was performed. Vital signs are noted to have some elevated blood pressures which is out of the norm for the patient. She does not take any blood pressure medication and states her blood pressure is not normally run high. CBC is normal without any noted leukocytosis, and preserved H&H and platelets. Metabolic panel is normal. Urinalysis is normal. Blood cultures x2 are pending. Negavove, Flu, COVID. LP was performed and cytology labs are pending as well as a tick-borne illness panel. Chest x-ray was performed and is negative for any acute cardiopulmonary abnormalities. CT of the head was performed and is also negative for any acute cardiopulmonary abnormalities. The LP was clear/champagne colored without any blood. She was started on Vancomycin, Rocephin and Doxycycline and has been given Dexamethasone 10 mg. ER physician has spoken with neurologist, Dr. Rouse, and pt is being admitted in the current setting for further evaluation, monitoring and workup. 04/12- pt is seen and examined. Just came back from MRI. c/o headache/nausea Review of Systems Review of Systems: All systems reviewed & are unremarkable except as noted in HPI and below Exam Const: General: comfortable and no acute distress Other: Obese female patient sitting up in bed at this time in no acute distress but does appear to be tired and ill. HENMT: Face/Nose/Sinus: Normal nares present Mouth: Yes moist mucous membranes Eyes: General: appearance normal, both eyes and all related structures Sclera: sclerae normal Pupils: Equal, round and reactive pupils present EOM: EOMs intact bilaterally Neck: Neck: not supple (Stiff neck, however no rigidity) and no JVD Thyroid: abnormal thyroid (Absent) Lymphatic: lymphadenopathy not noted Other: Negative Kernig and Brudzinski's signs. Resp: Effort & Inspection: normal respiratory effort Auscultation: clear to auscultation bilaterally Cardio: Rate: regular rate Rhythm: regular rhythm Heart sounds: no gallops, no murmurs and no rubs GI: Auscultation: normal bowel sounds Skin: General skin exam: normal color, no rashes or lesions noted, no erythema, No lesion and No rashes Lesions: no lesions noted Rashes: no rashes noted Wounds: no wounds Other: Anterior scalp with small area scabbing noted. No induration noted. Appears as an insect bite. Neuro: Cranial nerves: Yes Equal, round and reactive pupils present Speech: normal speech Motor exam (neuro): 5/5 motor strength present throughout and Normal motor muscle tone present throughout Sensory Exam: normal sensation Extrem: General: normal to inspection, no edema and no pedal edema Other: Patient with stiff neck. Active range of motion in full range of motion is present but she reports stiffness in the muscles. Psych: Mental Status: mental status grossly normal Affect: normal affect Objective Data Vital Signs Vital Signs: Vital Signs - 24 hr 04/11/25 21:37 04/11/25 21:56 04/11/25 21:57 Temperature 97.7 F Pulse Rate 68 80 Respiratory Rate 18 Blood Pressure 170/101 H Pulse Oximetry 99 99 Oxygen Delivery Room Air 04/11/25 21:58 04/11/25 22:00 04/11/25 22:15 Temperature Pulse Rate 71 67 Respiratory Rate 21 H 21 H Blood Pressure 168/107 H Pulse Oximetry 98 98 98 Oxygen Delivery 04/11/25 22:18 04/11/25 22:20 04/11/25 22:34 Temperature Pulse Rate 66 68 Respiratory Rate 17 Blood Pressure 171/104 H 171/104 H Pulse Oximetry 98 97 Oxygen Delivery 04/11/25 22:36 04/11/25 22:45 04/11/25 22:49 Temperature Pulse Rate 70 70 68 Respiratory Rate 17 20 16 Blood Pressure 169/108 H 147/115 H Pulse Oximetry 98 98 100 Oxygen Delivery 04/11/25 23:00 04/11/25 23:15 04/11/25 23:18 Temperature Pulse Rate 73 62 72 Respiratory Rate 17 15 20 Blood Pressure 140/74 Pulse Oximetry 98 97 97 Oxygen Delivery 04/11/25 23:30 04/11/25 23:31 04/11/25 23:32 Temperature Pulse Rate 68 69 69 Respiratory Rate 19 17 16 Blood Pressure 183/105 H Pulse Oximetry 98 99 98 Oxygen Delivery 04/12/25 00:19 04/12/25 00:27 04/12/25 00:30 Temperature Pulse Rate 67 70 76 Respiratory Rate 13 16 18 Blood Pressure 188/146 H Pulse Oximetry 98 100 96 Oxygen Delivery 04/12/25 00:31 04/12/25 00:45 04/12/25 00:46 Temperature Pulse Rate 71 64 74 Respiratory Rate 18 19 20 Blood Pressure 166/113 H 167/96 H Pulse Oximetry 97 97 98 Oxygen Delivery 04/12/25 01:00 04/12/25 01:01 04/12/25 01:15 Temperature Pulse Rate 71 71 72 Respiratory Rate 18 22 H 13 Blood Pressure 170/103 H Pulse Oximetry 98 97 97 Oxygen Delivery 04/12/25 01:16 04/12/25 01:30 04/12/25 01:34 Temperature Pulse Rate 74 69 80 Respiratory Rate 22 H 22 H 14 Blood Pressure 168/99 H 173/103 H Pulse Oximetry 96 98 Oxygen Delivery 04/12/25 01:45 04/12/25 01:46 04/12/25 02:00 Temperature Pulse Rate 69 64 67 Respiratory Rate 15 16 19 Blood Pressure 167/100 H Pulse Oximetry 97 98 98 Oxygen Delivery 04/12/25 02:01 04/12/25 02:15 04/12/25 02:16 Temperature Pulse Rate 72 67 71 Respiratory Rate 19 21 H 16 Blood Pressure 180/103 H 185/113 H Pulse Oximetry 98 Oxygen Delivery 04/12/25 02:30 04/12/25 02:31 04/12/25 02:41 Temperature Pulse Rate 75 75 80 Respiratory Rate 18 17 12 Blood Pressure 168/106 H 174/101 H Pulse Oximetry 98 98 98 Oxygen Delivery 04/12/25 02:45 04/12/25 03:00 04/12/25 03:01 Temperature Pulse Rate 71 70 67 Respiratory Rate 19 19 19 Blood Pressure 168/93 H Pulse Oximetry 97 97 97 Oxygen Delivery 04/12/25 03:14 04/12/25 03:47 04/12/25 04:04 Temperature 98.9 F 97.8 F Pulse Rate 72 74 Respiratory Rate 16 16 Blood Pressure 168/93 H 138/85 Pulse Oximetry 100 97 Oxygen Delivery Room Air 04/12/25 08:00 Temperature Pulse Rate 66 Respiratory Rate 14 Blood Pressure 132/85 Pulse Oximetry 97 Oxygen Delivery Intake/Output Intake/Output: Intake & Output 04/09/25 04/10/25 04/11/25 04/12/25 23:59 23:59 23:59 23:59 Intake Total 500 Balance 500 Meds/Results Medications: Active Medications Generic Name Dose Route Start Last Admin Trade Name Freq PRN Reason Stop Dose Admin Acetaminophen 1,000 mg 04/12/25 02:39 04/12/25 04:18 Acetaminophen 500 Mg Tablet PO 1,000 mg Q8HR PRN Administration Pain Rated 1-3 Hydrocodone Bitart/Acetaminophen 1 tab 04/12/25 02:39 Hydrocodone/Acetaminophen (*Crx) 5-325 Mg Tablet PO Q4HR PRN Pain Dexamethasone Sodium Phosphate 10 mg 04/12/25 00:00 04/12/25 05:45 Dexamethasone Sod Phos Inj 10 Mg/Ml 1 Ml Vial IV PUSH 10 mg Q6H MAYANK Administration Ergocalciferol 1,250 mcg 04/14/25 09:00 Ergocalciferol (Vitamin D2) 1,250 Mcg (50,000 Units) Capsule PO Whatley@0900 MAYANK Escitalopram Oxalate 10 mg 04/12/25 09:00 04/12/25 08:21 Escitalopram Oxalate 10 Mg Tablet PO 10 mg DAILY MAYANK Administration Estradiol 1 mg 04/12/25 09:00 04/12/25 08:21 Estradiol 1 Mg Tablet PO 1 mg DAILY MAYANK Administration Hydralazine HCl 10 mg 04/12/25 02:42 Hydralazine Hcl 20 Mg/Ml Vial IV PUSH Q8H PRN Blood Pressure - High Hydroxychloroquine Sulfate 200 mg 04/12/25 08:00 04/12/25 08:21 Hydroxychloroquine Sulfate 200 Mg Tablet PO 200 mg DAILY@0800 MAYANK Administration Ceftriaxone Sodium 2 gm/ 100 mls @ 200 mls/hr 04/12/25 00:00 04/12/25 02:08 Sodium Chloride IVPB Infused Q12H MAYANK Infusion Vancomycin HCl 1,500 mg in 500 mls @ 250 mls/hr 04/12/25 14:00 Vancomycin 1,500 Mg/Ns 500 Ml IVPB Q12H MAYANK Sodium Chloride 1,000 mls @ 100 mls/hr 04/12/25 02:45 04/12/25 03:53 Normal Saline Iv IV CONT 100 mls/hr .Q10H MAYANK Administration Levothyroxine Sodium 200 mcg 04/12/25 06:30 04/12/25 06:51 Levothyroxine Sodium 100 Mcg Tablet PO 200 mcg DAILY@0630 MAYANK Administration Morphine Sulfate 4 mg 04/12/25 02:39 Morphine Sulfate (*Crx) 4 Mg/Ml Inj IV PUSH Q4HR PRN Pain Radiology Results: ITS Impressions Head CT 04/11/25 22:42 Impression: No acute intracranial hemorrhage or suspicious mass effect. Chest X-Ray 04/12/25 00:02 IMPRESSION: No focal infiltrate or effusion. Labs Labs: Laboratory Results - last 24 hr 04/11/25 04/12/25 04/12/25 22:41 00:17 01:51 WBC 9.8 RBC 4.84 Hgb 13.6 Hct 40.8 MCV 84.3 MCH 28.1 MCHC 33.3 RDW 13.2 Plt Count 264 MPV 9.7 Immature Gran % (Auto) 0.2 Neut % (Auto) 53.5 Lymph % (Auto) 38.2 Spencer % (Auto) 5.8 Eos % (Auto) 1.8 Baso % (Auto) 0.5 Lymph # (Auto) 3.72 H Spencer # (Auto) 0.6 Eos # (Auto) 0.2 Baso # (Auto) 0.1 Abs Immat Gran (auto) 0.02 Absolute Neuts (auto) 5.2 Absolute Nucleated RBC 0.000 Nucleated RBC % 0.0 ESR 20 Sodium 136 L Potassium 3.7 Chloride 102 Carbon Dioxide 27 Anion Gap 7 BUN 16 Creatinine 0.76 Estim Creat Clear Calc 94 Estimated GFR > 60 Glucose 102 Calcium 9.0 Total Bilirubin 0.2 AST 31 ALT 27 Alkaline Phosphatase 77 C-Reactive Protein 0.9 Total Protein 7.2 Albumin 4.1 TSH (Reflex) 13.400 H Free T4 1.17 Serum HCG, Qual Negative Urine Color Yellow Urine Appearance Cloudy H Urine pH 6.5 Ur Specific [place] 1.019 Urine Protein Negative Urine Glucose (UA) Negative Urine Ketones Negative Ur Blood (Man) Negative Urine Nitrate Negative Urine Bilirubin Negative Urine Urobilinogen 0.2 Leukocyte Esterase Rfl Negative Urine RBC 0-2 Urine WBC 0-5 Ur Squamous Epith Cells None seen Urine Bacteria None seen Urine Casts 0-2 CSF Source Csf CSF Appearance Clear CSF Color Colorless CSF RBC 1.1 CSF Tot Nucleated Cells 0 CSF Neutrophils 0 CSF Lymphocytes 1 L CSF Monocytes 0 L CSF Eosinophils 0 CSF Macrophages 0 CSF Glucose CSF Total Protein A. phagocytophilum IgG A. phagocytophilum IgM A. phagocytophilum Cmmt Babesia duncani WA1 IgG Babesia microti IgG Ab Babesia microti IgM Ab Lyme Screen IgG & IgM Lyme IgG 18 kDa Band Lyme IgG 23 kDa Band Lyme IgG 28 kDa Band Lyme IgG 30 kDa Band Lyme IgG 39 kDa Band Lyme IgG 41 kDa Band Lyme IgG 45 kDa Band Lyme IgG 58 kDa Band Lyme IgG 66 kDa Band Lyme IgG 93 kDa Band Lyme IgG Ab (Immblot) Lyme IgM Ab (Immblot) Lyme IgM 23 kDa Band Lyme IgM 39 kDa Band Lyme IgM 41 kDa Band Lyme Disease Comment Lyme Ab Comment Oth Sp Ehrlichia IgG & IgM E. chaffeensis IgG Com E. chaffeensis IgM Intrp Influenza A (RT-PCR) Negative Influenza B (RT-PCR) Negative SARS-CoV-2 RNA (RT-PCR) Negative Tick-borne Disease Ab 04/12/25 04/12/25 04/12/25 01:52 02:07 22:41 WBC RBC Hgb Hct MCV MCH MCHC RDW Plt Count MPV Immature Gran % (Auto) Neut % (Auto) Lymph % (Auto) Spencer % (Auto) Eos % (Auto) Baso % (Auto) Lymph # (Auto) Spencer # (Auto) Eos # (Auto) Baso # (Auto) Abs Immat Gran (auto) Absolute Neuts (auto) Absolute Nucleated RBC Nucleated RBC % ESR Sodium Potassium Chloride Carbon Dioxide Anion Gap BUN Creatinine Estim Creat Clear Calc Estimated GFR Glucose Calcium Total Bilirubin AST ALT Alkaline Phosphatase C-Reactive Protein Total Protein Albumin TSH (Reflex) Free T4 Serum HCG, Qual Urine Color Urine Appearance Urine pH Ur Specific [place] Urine Protein Urine Glucose (UA) Urine Ketones Ur Blood (Man) Urine Nitrate Urine Bilirubin Urine Urobilinogen Leukocyte Esterase Rfl Urine RBC Urine WBC Ur Squamous Epith Cells Urine Bacteria Urine Casts CSF Source CSF Appearance CSF Color CSF RBC CSF Tot Nucleated Cells CSF Neutrophils CSF Lymphocytes CSF Monocytes CSF Eosinophils CSF Macrophages CSF Glucose 55 CSF Total Protein 33 A. phagocytophilum IgG Cancelled A. phagocytophilum IgM Cancelled A. phagocytophilum Cmmt Cancelled Babesia duncani WA1 IgG Cancelled Babesia microti IgG Ab Cancelled Babesia microti IgM Ab Cancelled Lyme Screen IgG & IgM Cancelled Lyme IgG 18 kDa Band Cancelled Lyme IgG 23 kDa Band Cancelled Lyme IgG 28 kDa Band Cancelled Lyme IgG 30 kDa Band Cancelled Lyme IgG 39 kDa Band Cancelled Lyme IgG 41 kDa Band Cancelled Lyme IgG 45 kDa Band Cancelled Lyme IgG 58 kDa Band Cancelled Lyme IgG 66 kDa Band Cancelled Lyme IgG 93 kDa Band Cancelled Lyme IgG Ab (Immblot) Cancelled Lyme IgM Ab (Immblot) Cancelled Lyme IgM 23 kDa Band Cancelled Lyme IgM 39 kDa Band Cancelled Lyme IgM 41 kDa Band Cancelled Lyme Disease Comment Cancelled Lyme Ab Comment Oth Sp Cancelled Ehrlichia IgG & IgM Cancelled E. chaffeensis IgG Com Cancelled E. chaffeensis IgM Intrp Cancelled Influenza A (RT-PCR) Influenza B (RT-PCR) SARS-CoV-2 RNA (RT-PCR) Tick-borne Disease Ab Cancelled Quality VTE Prophylaxis VTE prophylaxis: pharmacologic ordered
--- OUTSIDE RECORDS SUMMARY | 2025-04-12 09:22 | XMS_ITS | Clinical Summary ---
Author Organization [facility] Address [address] [place] [address] Phone Care Team Providers Care Maintenance Superintendent Name Role Phone Archie Garcia MD Primary Care Provider [phone] Allergies Active Allergy Reactions Criticality Noted Date [...] on file Legal Sex Female 8:53 AM CHIP TUNER Gender Identity Not on file Sexual Orientation Not on file Last Filed Vital Signs Vital Sign Reading Time Taken Comments Blood Pressure 152/89 09/17/2019 3:25 AM CHIP TUNER Pulse 82 09/17/2019 3:25 AM CHIP TUNER Temperature 36.9 C (98.5 F) 09/16/2019 9:39 PM CHIP TUNER Respiratory Rate 16 09/17/2019 3:25 AM CHIP TUNER Oxygen Saturation 99% 09/17/2019 3:25 AM CHIP TUNER Inhaled Oxygen Concentration - - Weight 94.3 kg (208 lb) 09/16/2019 9:39 PM CHIP TUNER Height 161.3 cm (5' 3.5) 09/16/2019 9:39 PM CHIP TUNER Body Mass Index 36.27 09/16/2019 9:39 PM CHIP TUNER Plan of Treatment Health Maintenance Due Date [...] age to complete this topic Care Teams Maintenance Superintendent Relationship Specialty Start Date End Date Archie Garcia MD [address] [place] [address] [place] [address] PCP - General Cardiovascular Disease - Cardiology 09/16/19
--- OUTSIDE RECORDS SUMMARY | 2025-04-12 09:22 | XMS_ITS | Clinical Summary ---
Author Organization [facility] [address] [place] [address] Address [address] [facility] 5th [place] [address] Care Team Providers Care Shuttle Fitting Supervisor Name Role Phone Tennille Beauchamp NP Primary Care Provider [phone] Allergies Active Allergy Reactions Criticality Noted Date [...] loss. Assessment & Plan (07/30/2024 8:12 PM ASSOCIATE FINANCIAL REPRESENTATIVE): BMI 36.00. Encourage healthy diet, routine exercise [...] Department Care Team Description 03/18/2025 Results Follow-Up [facility] Primary Care at [address] [place] [id number] Tennille Beauchamp NP SCREENING MAMMOGRAM BILATERAL W TAYA 03/13/2025 4:02 PM CDT - 03/13/2025 11:59 PM CDT Hospital Encounter [facility] [address] [place] [address] Discharge Disposition: Discharge to home or self [...] on file Legal Sex Female 9:53 AM ASSOCIATE FINANCIAL REPRESENTATIVE Gender Identity Not on file Sexual Orientation Not on file Obstetrics History Para Term AB IAB SAB Ectopic Multiple Livin g Live Births 1 1 Date Outcome GA Total Labor Labor/2nd/3rd Weight Sex Type Anes PTL Nat A1 A5 Name Clin Last Filed Vital [...] distortion in either breast. us Tennille Beauchamp GARDEN TRACTOR MECHANIC IMG MAMMO PROCEDURES Final Re sult from Last 3 Months Insurance [facility] CHOICE PLUS [facility] HMO/PPO Address: [place] [address] Care Teams Shuttle Fitting Supervisor Relationship Specialty Start Date End Date Tennille Beauchamp NP [address] [place] [address] PCP - General Family Medicine 01/05/24
--- OUTSIDE RECORDS SUMMARY | 2025-04-12 09:22 | XMS_ITS | Encounter Summary ---
Author Organization [facility] Address [address] [facility] [address] [place] [address] Care Team Providers Care Chiropractor Assistant Name Role Phone Tennille Beauchamp NP Primary Care Provider [phone] Encounter Details Date Type Department Care Team (Late st Contact Info) Description 03/18/2025 Results Follow-Up [facility] Primary Care at [address] [place] [address] Tennille Beauchamp NP [address] [place] [address] SCREENING MAMMOGRAM BILATERAL W TAYA [...] on file Legal Sex Female 9:53 AM JET DYEING MACHINE TENDER Gender Identity Not on file Sexual Orientation Not on file documented as of this encounter Plan of Treatment Not on file documented as of this encounter Visit Diagnoses Not on filedocumented in this encounter Care Teams Chiropractor Assistant Relationship Specialty Start Date End Date Tennille Beauchamp NP [address] [facility] [address] [place] [address] PCP - General Family Medicine 01/05/24 documented as of this encounter
--- OUTSIDE RECORDS SUMMARY | 2025-04-12 09:22 | XMS_ITS | Clinical Summary ---
Author Organization [facility] [employer] Address [address] [facility] [facility] [place] [address] Care Team Providers Care Powder Guard Name Role Phone Unavailable Primary Care Provider Unavailabl e Source Comments [facility],non-owned Affiliates and Associated Physician Practices is amultiple site organization consisting of ambulatory clinics and hospital sitesin [place], [place], [place] and [place]. This disclosure is being madepursuant to the Care Everywhere program and may not contain all information available regarding this patient. Last updated 18.[facility] [employer] Allergies Active Allergy Reactions Criticality Noted Date Comments Latex Rash Medium 07/30/2019 Penicillins Rash Medium 07/30/2019 Medications * Be aware that medications may not be up to date on this document. Alwaysverify current medications with the patient. No known medications Active Problems No known active problems Social History Tobacco Use Types Packs/Day Years Used Date Smoking Tobacco: Never Smokeless Tobacco: Never Comments No Sex and Gender Information Value Date Recorded Sex Assigned at Not on file Legal Sex Female 6:47 PM RECREATION WORKER Gender Identity Not on file Sexual Orientation Not on file Last Filed Vital Signs Vital Sign Reading Time Taken Comments Blood Pressure 126/74 07/30/2019 9:15 AM RECREATION WORKER Pulse 69 07/30/2019 9:15 AM RECREATION WORKER Temperature 36.7 C (98 F) 07/30/2019 9:15 AM RECREATION WORKER Respiratory Rate 16 07/30/2019 9:15 AM RECREATION WORKER Oxygen Saturation 98% 07/30/2019 9:15 AM RECREATION WORKER Inhaled Oxygen Concentration - - Weight 95.3 kg (210 lb) 07/30/2019 9:15 AM RECREATION WORKER Height 160 cm (5' 3) 07/30/2019 9:15 AM RECREATION WORKER Body Mass Index 37.2 07/30/2019 9:15 AM RECREATION WORKER Plan of Treatment Health Maintenance Due Date Last Done Comments LIPID TESTING 1981 MAMMOGRAM 1981 HIV SCREENING 1996 HEPATITIS C SCREENING 12/24/1999 DTAP/TDAP/TD VACCINES (1 - Tdap) 2000 HEPATITIS B VACCINE (1 of 3 - 19+ 3-dose series) 2000 HPV VACCINE (1 - 3-dose SCDM series) 2008 COVID-19 VACCINE (1 - 2023-2 5 season) 2024 DEPRESSION SCREENING 08/22/2024 INFLUENZA VACCINE (#1) 2025 ZOSTER VACCINE (1 of 2) 12/29/2031 HIB VACCINE Aged Out No longer eligi ble based on patient's age to complete this topic MENINGOCOCCAL (Group B) VACC INE SHARED DECISION-MAKING Aged Out No longer eligibl e based on patient's age to complete this topic MENINGOCOCCAL GROUPS A/C/Y/W VACCINE Aged Out No longer eligible b ased on patient's age to complete this topic PNEUMOCOCCAL VACCINE Aged Out No long er eligible based on patient's age to complete this topic Insurance
--- OUTSIDE RECORDS SUMMARY | 2025-04-12 09:22 | XMS_ITS | Clinical Summary ---
Author Organization [facility] Address [address] [place] [id number] Phone [facility]where[facility] Care Team Providers Care Sewing Machine Operator Plastic Zipper Name Role Phone Unavailable Primary Care Provider [...] CDT Gender Identity Female 09/17/2020 8:30 AM TRIM LINE WORKER Sexual Orientation Straight 09/17/2020 8: 30 AM TRIM LINE WORKER Last Filed Vital Signs Vital Sign Reading Time Taken Comments Blood Pressure - - Pulse - - Temperature - - Respiratory Rate - - Oxygen Saturation - - Inhaled Oxygen Concentration - - Weight 104 kg (230 lb) 09/17/2020 9:17 AM TRIM LINE WORKER Height 160 cm (5' 3) 09/17/2020 9:17 AM TRIM LINE WORKER Body Mass Index 40.74 09/17/2020 9:17 AM TRIM LINE WORKER Plan of Treatment Health Maintenance Due [...] age to complete this topic Insurance [facility]
[2025-04-12 09:48] LABS: Total Triiodothyronine (T3) 1.05 NG/ML (0.82-1.58)
[2025-04-12] MEDS: VANCOMYCIN 1,500 MG/NS 500 ML 1,500 MG/500 ML BAG 250 MG IVPB (13:13)
[2025-04-12] MEDS: LIDOCAINE 5% PATCH 1 PATCH TRANSDERM (13:15)
[2025-04-12] MEDS: MORPHINE SULFATE (*CRX) 4 MG/ML INJ IV PUSH ×2 (17:38→23:13)
[2025-04-13] VITALS (7 sets, daily range): BP systolic 129–169; BP diastolic 68–91; PULSE 64–72; RESP 16; TEMP 36.3–36.8; O2SAT 95–98
[2025-04-13] MEDS: VANCOMYCIN 1,500 MG/NS 500 ML 1,500 MG/500 ML BAG 125 MG IVPB (01:13)
[2025-04-13 05:03] LABS: Hematocrit 39.3 % (37.0-47.0); Hemoglobin 13.1 g/dL (12.0-15.0); Immature Granulocyte Percent A 0.7 % (0-0.5); Lymphocytes Absolute Auto 1.43 K/mm3 (0.9-3.2); Mean Corpuscular HGB Conc 33.3 g/dl (32-36); Mean Corpuscular Hemoglobin 28.4 pg (26-34); Mean Corpuscular Volume 85.2 fl (80-100); Nucleated Red Blood Cells Absolute Auto 0.000 K/mm3 (0.0-0.012); Nucleated Red Blood Cells Perc 0.0 % (0.0-0.2); Platelet Count Result 260 k/mm3 (150-375); Red Blood Count 4.61 M/mm3 (4.2-5.4); White Blood Count 18.8 K/mm3 (4.5-10.0)
[2025-04-13 05:17] LABS: Alanine Aminotransferase 40 U/L (6-35); Albumin Level 3.7 g/dL (3.5-5.1); Alkaline Phosphatase 67 U/L (38-126); Anion Gap 7 mmol/L (4-12); Aspartate Amino Transferase 33 U/L (14-36); Bilirubin,Total 0.1 mg/dL (0.2-1.3); Blood Urea Nitrogen 12 mg/dL (7-17); Calcium 8.2 mg/dL (8.4-10.2); Carbon Dioxide 23 mmol/L (22-30); Chloride 105 mmol/L (98-107); Estimated CRCL calculation 117 ml/min; Estimated Glomerular Filt Rate > 60; Glucose 150 mg/dL (65-110); Magnesium 1.9 mg/dL (1.6-2.3); Potassium 3.7 mmol/L (3.4-5.0); Sodium 135 mmol/L (137-145); Total Protein 6.5 g/dL (6.3-8.2)
[2025-04-13 05:18] LABS: INR 1.2; Prothrombin Time 14.8 Seconds (11.1-14.7)
[2025-04-13 05:19] LABS: Partial Thromboplastin Time 29.6 Seconds (22.3-36.8)
[2025-04-13] MEDS: LEVOTHYROXINE SODIUM 100 MCG TABLET 200 MCG PO (05:29)
[2025-04-13] MEDS: dexAMETHasone SOD PHOS INJ 10 MG/ML 1 ML VIAL IV PUSH ×2 (05:29→11:24)
[2025-04-13] MEDS: LIDOCAINE 5% PATCH 1 PATCH TRANSDERM (08:51)
[2025-04-13] MEDS: HYDROXYCHLOROQUINE SULFATE 200 MG TABLET PO (08:51)
[2025-04-13] MEDS: ESCITALOPRAM OXALATE 10 MG TABLET PO (08:51)
[2025-04-13] MEDS: SODIUM CHLORIDE 0.9% IV 1,000 ML 100 ML IV CONT (08:52)
[2025-04-13 10:21] LABS: MRSA (PCR) NOT DETECTED (NOT DETECTE)
[2025-04-13] MEDS: ACETAMINOPHEN 500 MG TABLET 1000 MG PO ×2 (11:23→21:17)
[2025-04-13] MEDS: cefTRIAXone 2 GM in SODIUM CHLORIDE 0.9% IV 100 ML 200 ML IVPB ×2 (11:24→23:41)
[2025-04-13] MEDS: VANCOMYCIN 1,500 MG/NS 500 ML 1,500 MG/500 ML BAG 250 MG IVPB (14:01)
--- NOTE | 2025-04-13 14:22 | P.PNIM_ITS ---
Progress Note: A&P Assessment and Plan (1) Headache: Code(s): R51.9 - Headache, unspecified Status: Acute Assessment and Plan: Patient presents with headache associated with neck stiffness in the setting of other autoimmune diseases (lupus) MRI brain negative for tumor/idiopathic intracranial hypertension/sign of encephalitis/meningitis Status post lumbar puncture, no organisms on Gram stain, thus labs are negative for bacterial or viral encephalitis/meningitis Lyme serology is negative, PCR MRSA is negative Follow-up with acid-fast bacilli semi, fungal culture and stain and blood culture Continue ceftriaxone, vanc and decadron Status post doxy for Lyme disease prophylaxis Neurology consulted, appreciate rec Pain control with prn meds (2) Elevated blood pressure reading: Code(s): R03.0 - Elevated blood-pressure reading, without diagnosis of hypertension Status: Acute Assessment and Plan: Bp goal in the hospital <150/80 if BP>150, ok to give Labetalol or hydralazine (3) Insect bite: Code(s): W57.XXXA - Bitten or stung by nonvenomous insect and other nonvenomous arthropods, initial encounter Status: Acute Assessment and Plan: Less likely tick bite based on the rash and location of rash Lyme serology negative Lyme in the CSF IgM pending status post Doxycycline 200 mg single dose for lyme prophylaxis Lidocaine patch for the back pain Plan If the remaining lab result comes back negative, discussed with vancomycin and Decadron Remains hemodynamically stable, discharge tomorrow Subjective Date/time seen: 04/13/25 14:22 Interval history: Examined patient this morning. She feels better. No nuchal rigidity/headache/chest pain/abdominal pain/fever/nausea/chills. Denies diarrhea Exam Const: General: cooperative, alert, awake and Physically active Orientation/Consciousness: patient oriented x3 Neck: General: Yes full ROM, Yes supple and Yes no neck mass and non-tender Chest: Palpation/Inspection: normal inspection of the chest Resp: Effort/Inspection: normal respiratory effort Cardio: Jugular Venous Distension: no JVD Rate: Yes regular rate Rhythm: regular rhythm GI: Auscultation: normal bowel sounds Palpation/Percussion: Yes non-tender and Yes no guarding Skin: Other: Erythema on multiple places on the torso Objective Data Vital Signs Vital Signs: Vital Signs - 24 hr 04/12/25 16:00 04/12/25 20:00 04/12/25 21:24 Temperature 36.4 C Pulse Rate 75 100 71 Respiratory Rate 14 18 16 Blood Pressure 137/78 117/70 Pulse Oximetry 98 95 95 Oxygen Delivery Room Air 04/12/25 21:34 04/13/25 00:00 04/13/25 04:01 Temperature 36.6 C 36.4 C 36.6 C Pulse Rate 100 72 69 Respiratory Rate 18 16 16 Blood Pressure 129/65 138/79 129/68 Pulse Oximetry 95 96 96 Oxygen Delivery 04/13/25 08:00 04/13/25 10:04 Temperature 36.7 C Pulse Rate 68 Respiratory Rate 16 Blood Pressure 143/81 H Pulse Oximetry 96 Oxygen Delivery Room Air Intake/Output Intake/Output: Intake & Output 04/10/25 04/11/25 04/12/25 04/13/25 23:59 23:59 23:59 23:59 Intake Total 3230 2019 Balance 3230 2019 Meds/Results Medications: Active Medications Generic Name Dose Route Start Last Admin Trade Name Freq PRN Reason Stop Dose Admin Acetaminophen 1,000 mg 04/12/25 02:39 04/13/25 11:23 Acetaminophen 500 Mg Tablet PO 1,000 mg Q8HR PRN Administration Pain Rated 1-3 Hydrocodone Bitart/Acetaminophen 1 tab 04/12/25 02:39 Hydrocodone/Acetaminophen (*Crx) 5-325 Mg Tablet PO Q4HR PRN Pain Dexamethasone Sodium Phosphate 10 mg 04/12/25 00:00 04/13/25 11:24 Dexamethasone Sod Phos Inj 10 Mg/Ml 1 Ml Vial IV PUSH 10 mg Q6H MAYANK Administration Ergocalciferol 1,250 mcg 04/14/25 09:00 Ergocalciferol (Vitamin D2) 1,250 Mcg (50,000 Units) Capsule PO Whatley@0900 MAYANK Escitalopram Oxalate 10 mg 04/12/25 09:00 04/13/25 08:51 Escitalopram Oxalate 10 Mg Tablet PO 10 mg DAILY MAYANK Administration Estradiol 1 mg 04/12/25 09:00 04/13/25 08:51 Estradiol 1 Mg Tablet PO 1 mg DAILY MAYANK Administration Hydralazine HCl 10 mg 04/12/25 02:42 Hydralazine Hcl 20 Mg/Ml Vial IV PUSH Q8H PRN Blood Pressure - High Hydroxychloroquine Sulfate 200 mg 04/12/25 08:00 04/13/25 08:51 Hydroxychloroquine Sulfate 200 Mg Tablet PO 200 mg DAILY@0800 MAYANK Administration Ceftriaxone Sodium 2 gm/ 100 mls @ 200 mls/hr 04/12/25 00:00 04/13/25 11:24 Sodium Chloride IVPB 200 mls/hr Q12H MAYANK Administration Sodium Chloride 1,000 mls @ 100 mls/hr 04/12/25 02:45 04/13/25 10:38 Normal Saline Iv IV CONT Not Given .Q10H MAYANK Vancomycin HCl 1,500 mg in 500 mls @ 250 mls/hr 04/13/25 14:00 04/13/25 14:01 Vancomycin 1,500 Mg/Ns 500 Ml IVPB 250 mls/hr Q8H MAYANK Administration Levothyroxine Sodium 200 mcg 04/12/25 06:30 04/13/25 05:29 Levothyroxine Sodium 100 Mcg Tablet PO 200 mcg DAILY@0630 MAYANK Administration Lidocaine 1 patch 04/12/25 12:30 04/13/25 08:51 Lidocaine 5% Patch TRANSDERM 1 patch DAILY MAYANK Administration Morphine Sulfate 4 mg 04/12/25 02:39 04/12/25 23:13 Morphine Sulfate (*Crx) 4 Mg/Ml Inj IV PUSH 4 mg Q4HR PRN Administration Pain Radiology Results: ITS Impressions Head CT 04/11/25 22:42 Impression: No acute intracranial hemorrhage or suspicious mass effect. Chest X-Ray 04/12/25 00:02 IMPRESSION: No focal infiltrate or effusion. Brain MRI 04/12/25 12:22 IMPRESSION: 1. Normal for age brain MR. No acute intracranial process. Labs Labs: Laboratory Results - last 24 hr 04/12/25 04/13/25 04/13/25 02:07 04:46 07:08 WBC 18.8 H RBC 4.61 Hgb 13.1 Hct 39.3 MCV 85.2 MCH 28.4 MCHC 33.3 RDW 13.2 Plt Count 260 MPV 9.9 Immature Gran % (Auto) 0.7 H Neut % (Auto) 90.2 H Lymph % (Auto) 7.6 L [place] % (Auto) 1.4 L Eos % (Auto) 0.0 Baso % (Auto) 0.1 L Lymph # (Auto) 1.43 [place] # (Auto) 0.3 Eos # (Auto) 0.0 Baso # (Auto) 0.0 Abs Immat Gran (auto) 0.13 H Absolute Neuts (auto) 17.0 H Absolute Nucleated RBC 0.000 Nucleated RBC % 0.0 PT 14.8 H INR 1.2 APTT 29.6 Sodium 135 L Potassium 3.7 Chloride 105 Carbon Dioxide 23 Anion Gap 7 BUN 12 Creatinine 0.61 L Estim Creat Clear Calc 117 Estimated GFR > 60 Glucose 150 H Lactic Acid 2.5 H 2.0 Calcium 8.2 L Magnesium 1.9 Total Bilirubin 0.1 L AST 33 ALT 40 H Alkaline Phosphatase 67 Total Protein 6.5 Albumin 3.7 Nasal MRSA (PCR) Vancomycin Trough Lyme Total Antibody Negative 04/13/25 04/13/25 08:59 12:46 WBC RBC Hgb Hct MCV MCH MCHC RDW Plt Count MPV Immature Gran % (Auto) Neut % (Auto) Lymph % (Auto) [place] % (Auto) Eos % (Auto) Baso % (Auto) Lymph # (Auto) [place] # (Auto) Eos # (Auto) Baso # (Auto) Abs Immat Gran (auto) Absolute Neuts (auto) Absolute Nucleated RBC Nucleated RBC % PT INR APTT Sodium Potassium Chloride Carbon Dioxide Anion Gap BUN Creatinine Estim Creat Clear Calc Estimated GFR Glucose Lactic Acid Calcium Magnesium Total Bilirubin AST ALT Alkaline Phosphatase Total Protein Albumin Nasal MRSA (PCR) Not detected Vancomycin Trough 10.5 Lyme Total Antibody Quality VTE Prophylaxis VTE prophylaxis: mechanical ordered
--- NOTE | 2025-04-13 16:05 | WPDNEURCNPN ---
Assessment and Plan Assessment and plan (1) New onset headache: Code(s): R51.9 - Headache, unspecified Status: Acute (2) Occipital neuralgia of left side: Code(s): M54.81 - Occipital neuralgia Status: Acute (3) Post lumbar puncture headache: Code(s): G97.1 - Other reaction to spinal and lumbar puncture Status: Acute Plan the spinal tap shows protein was 33 and there were no white cells. This picture is certainly not supportive of underlying meningitis of any kind. Of course of viral studies and Lyme titer but all be performed in can be followed up. The patient is receiving large doses of dexamethasone such as 10 mg 4 times a day in addition to multiple antibiotics. Her white cell count was normal at the time of admission and the steroids could raise the WBC count however this may require some follow-up. She may have a component of post lumbar puncture headache since the headache is significantly worse when she stands up however this of course is nonspecific. I would advise to encouraged to give her fluids and consider abdominal binder. A finally an epidural blood patch may be necessary if the headache remains posture and persistent. The pain in the left side of the back of the head or occipital neuralgia can be treated with gabapentin 300 mg 3 times a day and Toradol 30 mg q.6 hourly and a but if it persists a nerve block can be arranged through a pain specialist. I shall be glad to discuss this further with you. For now there does not appear to be any significant evidence for bacterial meningitis and hence if there is no evidence of infection elsewhere may consider discontinuation of the antibiotics and probably watch her for day or 2 while we treat her with IV fluids and abdominal binder to see if the post lumbar puncture headache gets better. I reviewed the MRI of the brain which was also within normal Limits. Her blood pressure is somewhat high today but that could be because of the dexamethasone. You may consider discontinuation of dexamethasone. She has been on this for 36 hours and hence if you are going to watch her you could stop it and see how she does. In addition if the postural headache continues after another 24 hours you may consider epidural blood patch since the possibility of post lumbar puncture headache may come in the differential diagnosis. Consult date: 04/13/25 HPI: Mayra Espinal is a 44 year old female Presented to the emergency room 2 days ago at night with complaints of headache for 4 days. There was some question of tick bite. Her describes that she was complaining of some pain on the left side of the neck from the nape of the neck to the back of the head. She did describe the pain being 10 on a scale of 10. The emergency room physician did explain to me and she was wondering about possible meningitis. The patient did have a spinal tap. This was done in sitting position with a 22 gauge needle. At the time of presentation she is afebrile and white cell count was normal however her blood pressure was high. She is now on dexamethasone 10 mg 4 times a day and antibiotics under suspicion of meningioma meningitis however her CSF shows protein was 33 and there were no WBC. Her white cell count today in the blood has gone up to 18.8 with 90% polys. MRI of the brain was performed which is within normal range. She continues to have headache however she describes that when she lies down the headache is much better but when she stands up or walk around the headache is significantly worse. She continues to have some pain in the left side of the head. She denies any diplopia nausea or vomiting. She has not had any febrile illness or any head trauma. Her sister suffers from migraine however she herself has not had any headaches. The question regarding tick bite also could not be reliably confirmed. Her was present and was indeed very helpful. She has had eye examination in December this year. There was no swelling of the disc and she had a complete examination since there is also history of lupus erythematosus for which she takes Plaquenil. Review of Systems Review of Systems: All systems reviewed & are unremarkable except as noted in HPI and below PMFSH Past Medical History Medical History (Updated 04/13/25 @ 16:12 by Jose Juan Rouse MD) Post lumbar puncture headache Occipital neuralgia of left side New onset headache Insect bite Elevated blood pressure reading History of hypothyroidism Surgical History Surgical History H/O thyroidectomy History of section History of cholecystectomy History of hysterectomy Family History Family History (Updated 04/12/25 @ 03:40 by Trudy Altman RN) Son Cerebrovascular accident Mother Diabetes mellitus Hypertension Social History Social History Smoking status: Former smoker Alcohol intake: never Substance use: never Lack of Transportation: No Lack of Food: Never True Current Housing: I Have Housing Concerned About Future Housing: No Difficulty Paying Gas/Electric Bills: No Difficulty Paying for Meds: No Currently Unemployed: No Education: High School Diploma/GED Difficulty w/ Childcare or Family Care: No Spiritual care concerns: No Meds Home Medications and Allergies Home Medications ?Medication ?Instructions ?Recorded ?Confirmed ?Type hydroxychloroquine 200 mg tablet 200 mg PO DAILY 06/09/23 04/12/25 History ergocalciferol (vitamin D2) 1,250 50,000 unit PO WEEKLY 12/18/23 04/12/25 History mcg (50,000 unit) capsule escitalopram oxalate 10 mg tablet 10 mg PO DAILY 12/18/23 04/12/25 History estradiol 1 mg tablet 1 mg PO DAILY 12/18/23 04/12/25 History levothyroxine 200 mcg tablet 200 mcg PO DAILY 12/18/23 04/12/25 History Allergies Allergy/AdvReac Type Severity Reaction Status Date / Time Sulfa (Sulfonamide Allergy Mild Rash Verified 04/11/25 21:40 Antibiotics) latex Allergy Unknown Rash Verified 04/11/25 21:40 Penicillins Allergy Unknown Rash Verified 04/11/25 21:40 Vital Signs Vital Signs - 24 hr 04/12/25 20:00 04/12/25 21:24 04/12/25 21:34 Temperature 97.6 F 97.8 F Pulse Rate 100 71 100 Respiratory Rate 18 16 18 Blood Pressure 117/70 129/65 Pulse Oximetry 95 95 95 Oxygen Delivery Room Air 04/13/25 00:00 04/13/25 04:01 04/13/25 08:00 Temperature 97.6 F 97.9 F Pulse Rate 72 69 Respiratory Rate 16 16 Blood Pressure 138/79 129/68 Pulse Oximetry 96 96 Oxygen Delivery Room Air 04/13/25 10:04 04/13/25 14:23 Temperature 98.0 F 97.3 F L Pulse Rate 68 72 Respiratory Rate 16 16 Blood Pressure 143/81 H 160/91 H Pulse Oximetry 96 97 Oxygen Delivery Exam Const: General: cooperative, well developed and alert Orientation/consciousness: oriented to person, oriented to place and oriented to time HENMT: Head: atraumatic Mouth: Yes oropharynx normal Other: There is tenderness over the left greater occipital nerve. Eyes: Alignment and Position: position normal Pupils: Equal, round and reactive pupils present EOM: EOMs intact bilaterally Neck: Neck: supple Resp: Effort & Inspection: normal respiratory effort Cardio: Rate: regular rate Skin: General skin exam: normal color Neuro: Cranial nerves: Yes CN's II-XII intact bilaterally, Yes Equal, round and reactive pupils present, Yes Bilaterally intact EOM present, Yes Nystagmus not present, Yes facial symmetry, Yes Midline tongue present and Yes Symmetric palate elevation present Cognition (Neuro): normal cognition Speech: normal speech Motor exam (neuro): 5/5 motor strength present throughout, Normal motor muscle tone present throughout and Motor abnormalities not present Sensory Exam: normal sensation Coordination: [id number] test normal and Normal rapid alternating movements of the distal upper extremity present (Neuro) Results Labs 04/13/25 04:46 04/13/25 04:46 Labs: Short CBC 04/13/25 Range/Units 04:46 WBC 18.8 H (4.5-10.0) K/mm3 Hgb 13.1 (12.0-15.0) g/dL Hct 39.3 (37.0-47.0) % Plt Count 260 (150-375) k/mm3 BMP 04/13/25 04:46 Sodium 135 L Potassium 3.7 Chloride 105 Carbon Dioxide 23 BUN 12 Creatinine 0.61 L Glucose 150 H Calcium 8.2 L Liver Function 04/13/25 Range/Units 04:46 Total Bilirubin 0.1 L (0.2-1.3) mg/dL AST 33 (14-36) U/L ALT 40 H (6-35) U/L Alkaline Phosphatase 67 (38-126) U/L Albumin 3.7 (3.5-5.1) g/dL
--- NOTE | 2025-04-13 16:29 | P.PNCROSS_ITS ---
Event Note Event Note Event Note: Neurology, Dr.Sajjan Rouse, called to discuss her LP result. No sign of bacter ial meningitis. She has occipital neuralgia. will treat pain with gabapentin 300 mg t.i.d. and portal sites mg q.6 hours. Due to low suspicion of bacterial meningitis, will discontinue vancomycin and dexamethasone Will observe patient overnight
[2025-04-14 01:31] VITALS: BP 159/79; PULSE 62; RESP 16; TEMP 36.8; O2SAT 98
[2025-04-14] MEDS: SODIUM CHLORIDE 0.9% IV 1,000 ML 100 ML IV CONT (03:41)
[2025-04-14 04:32] LABS: Hematocrit 37.2 % (37.0-47.0); Hemoglobin 12.2 g/dL (12.0-15.0); Immature Granulocyte Percent A 0.7 % (0-0.5); Lymphocytes Absolute Auto 1.90 K/mm3 (0.9-3.2); Mean Corpuscular HGB Conc 32.8 g/dl (32-36); Mean Corpuscular Hemoglobin 28.1 pg (26-34); Mean Corpuscular Volume 85.7 fl (80-100); Nucleated Red Blood Cells Absolute Auto 0.000 K/mm3 (0.0-0.012); Nucleated Red Blood Cells Perc 0.0 % (0.0-0.2); Platelet Count Result 261 k/mm3 (150-375); Red Blood Count 4.34 M/mm3 (4.2-5.4); White Blood Count 16.6 K/mm3 (4.5-10.0)
[2025-04-14 05:02] LABS: Alanine Aminotransferase 42 U/L (6-35); Albumin Level 3.4 g/dL (3.5-5.1); Alkaline Phosphatase 66 U/L (38-126); Anion Gap 5 mmol/L (4-12); Aspartate Amino Transferase 32 U/L (14-36); Bilirubin,Total 0.1 mg/dL (0.2-1.3); Blood Urea Nitrogen 12 mg/dL (7-17); Calcium 8.0 mg/dL (8.4-10.2); Carbon Dioxide 26 mmol/L (22-30); Chloride 105 mmol/L (98-107); Estimated CRCL calculation 108 ml/min; Estimated Glomerular Filt Rate > 60; Glucose 119 mg/dL (65-110); Potassium 3.6 mmol/L (3.4-5.0); Sodium 136 mmol/L (137-145); Total Protein 6.0 g/dL (6.3-8.2)
[2025-04-14] MEDS: LEVOTHYROXINE SODIUM 100 MCG TABLET 200 MCG PO (06:42)
[2025-04-14 07:00] VITALS: BP 170/87; PULSE 60; RESP 16; TEMP 36.8; O2SAT 96
[2025-04-14 08:00] VITALS: O2SAT 96
[2025-04-14] MEDS: ESCITALOPRAM OXALATE 10 MG TABLET PO (08:45)
[2025-04-14] MEDS: HYDROXYCHLOROQUINE SULFATE 200 MG TABLET PO (08:45)
[2025-04-14] MEDS: ERGOCALCIFEROL (VITAMIN D2) 1,250 MCG (50,000 UNITS) CAPSULE 1250 MCG PO (09:24)
[2025-04-14 10:53] VITALS: BP 171/86; PULSE 62; RESP 16; TEMP 36.3; O2SAT 96
--- NOTE | 2025-04-14 12:48 | PM.DS ---
DS: Admitting Diagnosis Discharge Date 04/14/2025 Admitting Diagnosis He headache associated with neck stiffness DS: Discharge Diagnosis Discharge Diagnosis Plan Occipital cervicalgia Neurology recommended gabapentin 300 mg t.i.d. p.r.n. DS: Summary Hospital Course Hospital Course: Mayra Espinal is a 44-year-old female with past medical history of lupus, hypothyroidism, anxiety/depression and vitamin-D deficiency who presents with severe headache associated with neck stiffness. Presumptive diagnosis was meningitis and she was empirically treated with vancomycin, ceftriaxone and dexamethasone. CT head obtained and shows no acute intracranial hemorrhage or suspicious mass-effect. Chest x-ray was negative for infiltrate or consolidation. The brain MRI was negative for any acute abnormalities. WBC was normal. Chemistry levels unremarkable. Lumbar puncture was performed and CSF was so far unremarkable. Blood culture pending, the CSF PCR for West Nile virus and other viral panel is still pending. Patient has salter afebrile, hemodynamically stable, normal completing neck stiffness or nuchal rigidity. On my physical exam, there was no nuchal rigidity or Brudzinski sign. Antibiotics and dexamethasone was discontinued after discussing with Neurology. Patient has lupus. A in the working diagnosis currently is occipital with cervicalgia on the left side. Patient will follow Neurology as outpatient. For pain control we will discharge her with gabapentin 300 mg t.i.d. p.r.n. Time Spent with Patient Time attestation: Total time spent providing and/or coordinating discharge services: Exam Narrative: APPEARANCE: No acute distress, nontoxic, resting in ? EYES: EOMI HEENT: Normocephalic, atraumatic, OMM RESPIRATORY: No respiratory distress Clear to auscultation bilaterally with no rhonchi wheezing or rales. CARDIOVASCULAR: RRR, S1 and S2 without murmurs rubs or gallops. ABDOMINAL: Soft, nontender, nondistended, no rebound or guarding MUSCULOSKELETAl: range of motion to the left lower extremity is limited due to pain of the left ankle. No bony tenderness throughout either leg and no deformities. NEURO: Awake and alert. Following commands, speech normal, no focal deficits SKIN:: Warm, dry. No rashes lesions or abrasions PSYCHIATRIC: Normal affect/mood, DS: Data Data Completed and Pending Labs on day of discharge: Labs from last 24 hours 04/14/25 04/13/25 04:14 12:46 WBC 16.6 H RBC 4.34 Hgb 12.2 Hct 37.2 MCV 85.7 MCH 28.1 MCHC 32.8 RDW 13.5 Plt Count 261 MPV 10.0 Immature Gran % (Auto) 0.7 H Neut % (Auto) 83.2 H Lymph % (Auto) 11.4 L [place] % (Auto) 4.6 Eos % (Auto) 0.0 Baso % (Auto) 0.1 L Lymph # (Auto) 1.90 [place] # (Auto) 0.8 H Eos # (Auto) 0.0 Baso # (Auto) 0.0 Abs Immat Gran (auto) 0.12 H Absolute Neuts (auto) 13.8 H Absolute Nucleated RBC 0.000 Nucleated RBC % 0.0 Sodium 136 L Potassium 3.6 Chloride 105 Carbon Dioxide 26 Anion Gap 5 BUN 12 Creatinine 0.67 L Estim Creat Clear Calc 108 Estimated GFR > 60 Glucose 119 H Calcium 8.0 L Total Bilirubin 0.1 L AST 32 ALT 42 H Alkaline Phosphatase 66 Total Protein 6.0 L Albumin 3.4 L Vancomycin Trough 10.5 Discharge Plan Discharge Attending physician on discharge: Cha Ruffin Consulting providers: Jose Juan Rouse Discharging Clinician: Cha Ruffni Anticipated Discharge Date/Time: 04/14/25 12:33 Patient Disposition: Home Activity: unlimited Diet: regular Patient Instructions: Antibiotic Form Patient Language: Sinhala Stand Alone Forms: General Discharge Information Follow-up/Referrals: Jose Juan Rouse MD [Physician, Neurology] - 3 Weeks Discharge Medications: New gabapentin 300 mg capsule 300 mg PO TID Qty: 30 0RF Continued hydroxychloroquine 200 mg tablet 200 mg PO DAILY estradiol 1 mg tablet 1 mg PO DAILY levothyroxine 200 mcg tablet 200 mcg PO DAILY ergocalciferol (vitamin D2) 1,250 mcg (50,000 unit) capsule 50,000 unit PO WEEKLY Rx Instructions: SUNDAYS escitalopram oxalate 10 mg tablet 10 mg PO DAILY Other Ambulatory Orders: Gabapentin (Routine) Timeframe: 10 Day Location: Determined by Patient Ordered By: Cah Ruffin Date of admission: 04/12/25 09:18 Primary Care Provider: Chani,Binh Craven Admitting Provider: Cecille Burnette Attending physician on admission: Anitra Lozano Condition: Improved
[2025-04-15 15:08] LABS: VDRL, CSF Non Reactive (Non Rea:<1:1)
[2025-04-15 23:07] LABS: HSV-1 DNA, CSF Negative (Negative); HSV-2 DNA, CSF Negative (Negative)
[2025-04-16 12:08] LABS: Epstein-Barr Virus RT PCR, CSF Negative (Negative)
[2025-04-16 13:08] LABS: B microti IgG <1:10 (Neg:<1:10); E. chaffeensis IgG Negative (Neg:<1:64)
[2025-04-17 15:09] LABS: Albumin 3.9 g/dL (3.9-4.9); Albumin, CSF 9 mg/dL (8-37); IgG, Quant, CSF 1.4 mg/dL (0.0-6.7); IgG, Syn Rate,CSF -2.5 mg/day (-9.9 TO +3.3); IgG/Alb Ratio, CSF 0.16 (0.00-0.25); Immunoglobulin G, Qn 1037 mg/dL (586-1602)
[2025-04-18 15:09] LABS: West Nile Virus Source CSF (.); West Nile Virus by PCR Not Detected (.)
== END 2025-04-14 13:00 | disposition home or self-care (01) ==
LOC: ANHED 04-12 01:11 → ANH2MED 04-12 15:40
PROVIDERS: Nurse Practitioner Adult Health; Admitting Provider Family Medicine; Emergency Provider Emergency Medicine; PCP Family Medicine; Visit Provider Student in an Organized Health Care Education/Training Program
DX: M54.81 Occipital neuralgia (principal); R51.9 Headache, unspecified; G97.1 Other reaction to spinal and lumbar puncture; E03.9 Hypothyroidism, unspecified; R03.0 Elevated blood-pressure reading, without diagnosis of hypertension; W57.XXXA Bitten or stung by nonvenomous insect and other nonvenomous arthropods, initial encounter; Z20.822 Contact with and (suspected) exposure to COVID-19; Z85.850 Personal history of malignant neoplasm of thyroid; Z90.710 Acquired absence of both cervix and uterus; Z87.891 Personal history of nicotine dependence; E55.9 Vitamin D deficiency, unspecified; M32.9 Systemic lupus erythematosus, unspecified; F41.8 Other specified anxiety disorders
CPT/HCPCS: 36415; 62270; 70450; 70553; 71045; 80053; 80202; 81001; 82945; 83605; 83735; 84157; 84439; 84443; 84480; 84703; 85025; 85610; 85652; 85730; 86140; 86592; 86617; 86618; 86666; 87040; 87102; 87206; 87529; 87636; 87641; 87798; 87899; 89051; 96361; 96365; 96366; 96367; 96374; 96375; 96376; 99285; A9270; A9577; G0378; J0696; J1100; J1200; J1885; J2270; J2405; J2765; J3373; J7030